=== PATIENT | female | born 1995 | race Caucasian/White ===

== ENCOUNTER 2019-01-11 19:46 | Emergency (ER) | payer OTHER ==
--- OUTSIDE RECORDS SUMMARY | 2019-01-11 19:48 | XMS REPORT ---
:1995 [facility] Address [address] [place] [address] Dr. Bashir [address] [place] [id number] Care Team Providers Name Role Phone Unavailable Unavailable Unavailable Problems This patient has no known problems. Allergies, Adverse Reactions, Alerts This patient has no known allergies or adverse reactions. Medications This patient has no known medications.
[2019-01-11 20:30] LABS: Absolute Lymphocytes (CBC) 1.7 K/uL (0.7-4.9); Basophils % 0.6 % (0-1.3); MPV 6.6 fL (7.6-11.3)
[2019-01-11 20:41] LABS: Urine Blood NEGATIVE (NEG); Urine Glucose NEGATIVE (NEG); Urine Protein TRACE (NEG); Urine Specific Gravity >1.030 (1.005-1.030); Urine pH 6.5 (5.0-7.0)
[2019-01-11 20:43] LABS: ALT/SGPT 41 U/L (12-78); AST/SGOT 20 U/L (15-37); Albumin 4.3 g/dL (3.4-5.0); Alkaline Phosphatase 130 U/L (45-117); BUN Blood Urea Nitrogen 18 mg/dL (7-18); Bicarbonate 25 mmol/L (21-32); Bilirubin Direct 0.1 mg/dL (0-0.2); Bilirubin Total 0.3 mg/dL (0.2-1.0); Glucose Level 87 mg/dL (74-106); Lipase 99 U/L (73-393); Potassium 3.6 mmol/L (3.5-5.1); Protein, Total 8.1 g/dL (6.4-8.2); Sodium Level 142 mmol/L (136-145)
--- NOTE | 2019-01-11 21:14 | EDPHYS ---
Physician Documentation [facility] Name: Milka Ayon Age: 23 yrs Sex: Female : 1995 Arrival Date: 01/11/2019 Time: 20:01 Bed 6 Private MD: ED Physician Og Senior HPI: 01/11 20:52 This 23 yrs old Female presents to ER via Ambulatory with complaints of tw4 Abdominal Pain. 20:52 The patient presents to the emergency department with diarrhea, 5 times since the onset tw4 of symptoms. Onset: The symptoms/episode began/occurred today, at 12:00. Possible causes: unknown. The symptoms are aggravated by nothing. The symptoms are alleviated by nothing. Associated signs and symptoms: Pertinent positives: abdominal pain. Severity of symptoms: At their worst the symptoms were moderate in the emergency department the symptoms are unchanged. The patient has not experienced similar symptoms in the past. 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 - Social history:: Smoking status: Patient/guardian denies using tobacco. - Ebola Screening: : No symptoms or risks identified at this time. ROS: 21:10 Constitutional: Negative for fever, chills, and weight loss, Eyes: Negative for injury, tw4 pain, redness, and discharge, Neck: Negative for injury, pain, and swelling, Cardiovascular: Negative for chest pain, palpitations, and edema, Respiratory: Negative for shortness of breath, cough, wheezing, and pleuritic chest pain, Back: Negative for injury and pain, MS/Extremity: Negative for injury and deformity, Skin: Negative for injury, rash, and discoloration, Neuro: Negative for headache, weakness, numbness, tingling, and seizure. 21:10 Abdomen/GI: Positive for diarrhea, abdominal cramps, Negative for nausea and vomiting, nausea, vomiting, and diarrhea, nausea, vomiting, anorexia, dysphagia, hematemesis, black/tarry stool, rectal pain, rectal bleeding, bowel incontinence. Exam: 21:10 Constitutional: This is a well developed, well nourished patient who is awake, alert, tw4 and in no acute distress. Head/Face: Normocephalic, atraumatic. Chest/axilla: Normal chest wall appearance and motion. Nontender with no deformity. No lesions are appreciated. Cardiovascular: Regular rate and rhythm with a normal S1 and S2. No gallops, murmurs, or rubs. Normal PMI, no JVD. No pulse deficits. Respiratory: Lungs have equal breath sounds bilaterally, clear to auscultation and percussion. No rales, rhonchi or wheezes noted. No increased work of breathing, no retractions or nasal flaring. 21:10 Back: No spinal tenderness. No costovertebral tenderness. Full range of motion. MS/ Extremity: Pulses equal, no cyanosis. Neurovascular intact. Full, normal range of motion. Neuro: Awake and alert, GCS 15, oriented to person, place, time, and situation. Cranial nerves II-XII grossly intact. Motor strength 5/5 in all extremities. Sensory grossly intact. Cerebellar exam normal. Normal gait. 21:10 Abdomen/GI: Inspection: abdomen appears normal, Bowel sounds: diminished, in all quadrants, Palpation: mild abdominal tenderness, in the umbilical area. Vital Signs: 20:04 BP 127 / 74; Pulse 86; Resp 16; Temp 97.4; Pulse Ox 100% on R/A; Weight 53.07 kg; la1 Height 4 ft. 11 in. (149.86 cm); 21:30 BP 115 / 70; Pulse 81; Resp 15; Pulse Ox 98% on R/A; rr5 22:20 BP 103 / 66; Pulse 88; Resp 17; Temp 97.5; Pulse Ox 98% ; Pain 0/10; rr5 20:04 Body Mass Index 23.63 (53.07 kg, 149.86 cm) la1 MDM: 20:05 Patient medically screened. tw4 21:10 Differential diagnosis: Nonspecific abd pain, gastritis, viral gastroenteritis, tw4 gastroenteritis. Data reviewed: vital signs, nurses notes. Data reviewed: lab test result(s), CBC, white blood cell count, hemoglobin, hematocrit, platelets, electrolytes, sodium, potassium, chloride, serum bicarbonate, BUN, creatinine, serum glucose. Data interpreted: Pulse oximetry: Interpretation: normal. Counseling: I had a detailed discussion with the patient and/or guardian regarding: the historical points, exam findings, and any diagnostic results supporting the discharge/admit diagnosis, lab results. Medication response: lomotil. Response to treatment: the patient's symptoms have resolved after treatment, the patient's pain is gone, and as a result, I will discharge patient. Special discussion: Based on the patient's Hx, exam, and Dx evaluation, there is no indication for emergent surgery or inpatient Tx. It is understood by the patient/guardian that if the Sx's persist or worsen they need to return immediately for re-evaluation. I discussed with the patient/guardian in detail that at this point there is no indication for admission to the hospital. It is understood, however, that if the symptoms persist or worsen the patient needs to return immediately for re-evaluation. 01/11 20:09 Order name: Basic Metabolic Panel; Complete Time: 20:51 01/11 20:51 Interpretation: Normal except: CL 109. 01/11 20:09 Order name: CBC with Diff; Complete Time: 20:52 [facility] 01/11 20:51 Interpretation: Normal except: RBC 5.00; MPV 6.6. 01/11 20:09 Order name: Creatinine for Radiology; Complete Time: 20:52 01/11 20:52 Interpretation: Within normal limits: CRE 0.76; GFR > 90. 01/11 20:09 Order name: Hepatic Function; Complete Time: 20:52 [facility] 01/11 20:51 Interpretation: Normal except: ALK 130; GLOB 3.8. 01/11 20:09 Order name: Lipase 01/11 20:23 Order name: Urine Dipstick--Ancillary (enter results); Complete Time: 20:52 [facility] 01/11 20:51 Interpretation: Normal except: UKET 2+. 01/11 20:09 Order name: IV Saline Lock; Complete Time: 20:21 01/11 20:09 Order name: Labs collected and sent; Complete Time: 20:21 01/11 20:09 Order name: Urine Dipstick-Ancillary (obtain specimen); Complete Time: 20:21 01/11 20:09 Order name: Urine Test (obtain specimen); Complete Time: 20:21 01/11 20:23 Order name: Urine --Ancillary (enter results); Complete Time: 20:52 em1 01/11 20:52 Interpretation: Normal except: USPGR >1.030. tw4 Administered Medications: 21:25 Drug: NS 0.9% 1000 ml Route: IV; Rate: 1 bolus; Site: right antecubital; rr5 22:20 Follow up: Response: No adverse reaction; IV Status: Completed infusion; IV Intake: rr5 1000ml 21:25 Drug: LoMOTIL 2 tabs Route: PO; rr5 22:20 Follow up: Response: No adverse reaction; Marked relief of symptoms; Pain is decreased rr5 Disposition: 01/11/19 21:12 Discharged to Home. Impression: Diarrhea, unspecified, Dehydration. - Condition is Stable. - Discharge Instructions: Food Choices to Help Relieve Diarrhea, Adult, Diarrhea, Adult. - Prescriptions for Lomotil 2.5- 0.025 mg Oral Tablet - take 2 tablet by ORAL route once daily As needed; 20 tablet. - Medication Reconciliation Form, Thank You Letter, Antibiotic Education, Prescription Opioid Use form. - Follow up: Private Physician; When: Upon discharge from the Emergency Department; Reason: If symptoms return, Recheck today's complaints, Continuance of care. - Problem is new. - Symptoms have improved. Signatures: Dispatcher [employer] EDMS Willard Murray RN RN la1 Og Senior MD MD tw4 Jose Rafael Ohara RN RN rr5 Corrections: (The following items were deleted from the chart) 22:32 21:12 01/11/2019 21:12 Discharged to Home. Impression: Diarrhea, unspecified; rr5 Dehydration. Condition is Stable. Forms are Medication Reconciliation Form, Thank You Letter, Antibiotic Education, Prescription Opioid Use. Follow up: Private Physician; When: Upon discharge from the Emergency Department; Reason: If symptoms return, Recheck today's complaints, Continuance of care. Problem is new. Symptoms have improved. tw4
--- NOTE | 2019-01-11 21:14 | ER ---
Nurse's Notes [facility] Name: Milka Ayon Age: 23 yrs Sex: Female : 1995 Arrival Date: 01/11/2019 Time: 20:01 Bed 6 Private MD: Diagnosis: Diarrhea, unspecified;Dehydration Presentation: 01/11 20:03 Presenting complaint: Patient states: Abd pain, diarrhea, and neck pain that started la1 today. Transition of care: patient was not received from another setting of care. Onset of symptoms was January 11, 2019. Risk Assessment: Do you want to hurt yourself or someone else? Patient reports no desire to harm self or others. Initial Sepsis Screen: Does the patient meet any 2 criteria? No. Patient's initial sepsis screen is negative. Does the patient have a suspected source of infection? No. Patient's initial sepsis screen is negative. Care prior to arrival: None. 20:03 Method Of Arrival: Ambulatory la1 20:03 Acuity: JULIETH 3 la1 BLACK BELT: 21:00 [facility] 11/2017 rr5 Historical: - Allergies: 20:04 No Known Allergies; la1 - PMHx: 20:04 None; la1 - Immunization history:: Adult Immunizations up to date. - Social history:: Smoking status: Patient/guardian denies using tobacco. - Ebola Screening: : No symptoms or risks identified at this time. Screenin:06 Abuse screen: Denies threats or abuse. Denies injuries from another. Nutritional ak1 screening: No deficits noted. Tuberculosis screening: No symptoms or risk factors identified. Fall Risk None identified. Assessment: 20:08 General: Appears in no apparent distress. comfortable, Behavior is calm, cooperative. ak1 Pain: Complains of pain in abdomen. Neuro: No deficits noted. Cardiovascular: No deficits noted. Respiratory: No deficits noted. GI: Abdomen is round non-distended, Reports diarrhea, Patient currently denies vomiting. : No signs and/or symptoms were reported regarding the genitourinary system. EENT: No signs and/or symptoms were reported regarding the EENT system. Derm: No signs and/or symptoms reported regarding the dermatologic system. Musculoskeletal: No signs and/or symptoms reported regarding the musculoskeletal system. 20:08 GI: Bowel sounds present X 4 quads. Abd is soft and non tender X 4 quads. rr5 21:15 Reassessment: Patient appears in no apparent distress at this time. Patient and/or rr5 family updated on plan of care and expected duration. Pain level reassessed. Patient is alert, oriented x 3, equal unlabored respirations, skin warm/dry/pink. after fluid infusion for discharge. 22:20 Reassessment: Patient appears in no apparent distress at this time. Patient is alert, rr5 oriented x 3, equal unlabored respirations, skin warm/dry/pink. discharge instruction given and explained without complaints made. Patient denies pain at this time. Patient states feeling better. Patient states symptoms have improved. Vital Signs: 20:04 BP 127 / 74; Pulse 86; Resp 16; Temp 97.4; Pulse Ox 100% on R/A; Weight 53.07 kg; la1 Height 4 ft. 11 in. (149.86 cm); 21:30 BP 115 / 70; Pulse 81; Resp 15; Pulse Ox 98% on R/A; rr5 22:20 BP 103 / 66; Pulse 88; Resp 17; Temp 97.5; Pulse Ox 98% ; Pain 0/10; rr5 20:04 Body Mass Index 23.63 (53.07 kg, 149.86 cm) la1 ED Course: 20:01 Patient arrived in ED. ds1 20:04 Triage completed. la1 20:04 Arm band placed on left wrist. la1 20:05 Og Senior MD is Attending Physician. tw4 20:08 Arianne Buchanan, RN is Primary Nurse. ak1 20:09 Patient has correct armband on for positive identification. Bed in low position. Call ak1 light in reach. Side rails up X 1. Adult w/ patient. 20:20 Inserted saline lock: 22 gauge in right antecubital area, using aseptic technique. rr5 Blood collected. 22:20 No provider procedures requiring assistance completed. IV discontinued, intact, rr5 bleeding controlled, No redness/swelling at site. Pressure dressing applied. Administered Medications: 21:25 Drug: NS 0.9% 1000 ml Route: IV; Rate: 1 bolus; Site: right antecubital; rr5 22:20 Follow up: Response: No adverse reaction; IV Status: Completed infusion; IV Intake: rr5 1000ml 21:25 Drug: LoMOTIL 2 tabs Route: PO; rr5 22:20 Follow up: Response: No adverse reaction; Marked relief of symptoms; Pain is decreased rr5 Intake: 22:20 IV: 1000ml; Total: 1000ml. rr5 Outcome: 21:12 Discharge ordered by . [email or web address] 22:20 Discharged to home ambulatory, with family. rr5 22:20 Condition: stable 22:20 Discharge instructions given to patient, Instructed on discharge instructions, follow up and referral plans. medication usage, Demonstrated understanding of instructions, follow-up care, medications, Prescriptions given X 1. 22:32 Patient left the ED. rr5 Signatures: Mahnaz Yang ds1 Willard Murray, RN RN la1 Arianne Buchanan RN RN ak1 Og Senior MD MD tw4 Jose Rafael Ohara RN RN rr5
[2019-01-11] MEDS ORDERED: DIPHENOX/ATROP SULF 1 TAB PO ONE (21:18)
[2019-01-11] MEDS ORDERED: NA CHLORIDE 0.9% 1,000 ML ONE (21:19)
[2019-01-11 22:59] VITALS: O2SAT 98
[2019-01-11 23:02] VITALS: BP 103/66; TEMP 97.5
== END 2019-01-11 22:32 | disposition home or self-care (01) ==
LOC: ER 19:46
DX: E86.0 Dehydration (principal)
CPT/HCPCS: 85025; 80048; 36415; 81025; 80076; 81003; 83690; J7030; 96360; 99284

== ENCOUNTER 2019-10-05 13:43 | Emergency (ER) | payer OTHER ==
[2019-10-05] MEDS ORDERED: LIDOCAINE 1% MPF 5 ML VIAL ONE (14:33)
[2019-10-05] MEDS ORDERED: CEFTRIAXONE 250 MG/VIAL ONE (14:34)
[2019-10-05] MEDS ORDERED: AZITHROMYCIN 250 MG TAB ONE (14:34)
[2019-10-05] MEDS ORDERED: metroNIDAZOLE 500 MG TABLET ONE (14:34)
--- NOTE | 2019-10-05 14:47 | EDPHYS ---
Physician Documentation [facility] Name: Milka Ayon Age: 24 yrs Sex: Female : 1995 Arrival Date: 10/05/2019 Time: 13:46 Bed 14 Private MD: ED Physician Saleem Fried Historical: - Allergies: 10/04 13:54 No Known Allergies; iw - Home Meds: 13:54 None [Active]; iw - PMHx: 13:54 None; iw - PSHx: 13:54 cleft lip repair; ; iw - Immunization history:: Adult Immunizations unknown. - Social history:: Smoking status: Patient denies any tobacco usage or history of. Vital Signs: 13:51 BP 128 / 74; Pulse 62; Resp 16; Temp 98.7; Pulse Ox 100% on R/A; Weight 56.7 kg; Height iw 4 ft. 10 in. (147.32 cm); 13:51 Body Mass Index 26.12 (56.70 kg, 147.32 cm) iw MDM: 14:11 Patient medically screened. [facility] 14:46 Data reviewed: vital signs, nurses notes. Counseling: I had a detailed discussion with sofy the patient and/or guardian regarding: the historical points, exam findings, and any diagnostic results supporting the discharge/admit diagnosis, the need for outpatient follow up, to return to the emergency department if symptoms worsen or persist or if there are any questions or concerns that arise at home. ED course: Patient is asymptomatic. Patient is advised to follow up with medical management trainer for further evaluation and otherwise given strict return precautions. Patient understood and agrees with the plan of care. . 10/04 14:18 Order name: Urine Culture [facility] 10/04 14:24 Order name: Urine Dipstick--Ancillary (enter results) eb 10/04 14:24 Order name: Urine --Ancillary (enter results) Administered Medications: 14:30 Drug: Rocephin (cefTRIAXone) 250 mg Route: IM; Site: right ventrogluteal; ah 15:09 Follow up: Response: No adverse reaction 14:35 Drug: AZITHromycin 1 grams Route: PO; ah 15:09 Follow up: Response: No adverse reaction 14:35 Drug: Flagyl 2 grams Route: PO; 15:09 Follow up: Response: No adverse reaction Disposition: 15:32 Co-signature as Attending Physician, Saleem Fried MD. rn Disposition: 10/05/19 14:47 Discharged to Home. Impression: Person with feared health complaint in whom no diagnosis is made. - Condition is Stable. - Discharge Instructions: Sexually Transmitted Disease. - Medication Reconciliation Form, Thank You Letter, Antibiotic Education, Prescription Opioid Use form. - Follow up: Private Physician; When: 2 - 3 days; Reason: Recheck today's complaints, Continuance of care, Re-evaluation by your physician. Addendum: 10/13/2019 16:19 Addendum: HPI - Patient complains of concern for STD exposure. Admits to unprotected j mm intercourse with partner whom the patient stated had had intercourse with another partner earlier that day. Denies vaginal discharge, pelvic pain, dysuria. ROS - Negative for all systems. PE - GEN NAD, HEENT Atraumatic, Neck Supple, Resp Non labored, Cardio RRR, Abd Soft, Psych Behavior calm, Neuro A x O x 3. Diagnosis - Feared complaint in which no diagnosis is made. Signatures: Dispatcher [employer] EDMS Richar Mendoza PA PA jmm Williams, Irene, RN RAMIRO Saleem Fried MD MD rn Harris, Amy, RN RN Corrections: (The following items were deleted from the chart) 10/04 15:09 14:47 10/05/2019 14:47 Discharged to Home. Impression: Person with feared health ah complaint in whom no diagnosis is made. Condition is Stable. Forms are Medication Reconciliation Form, Thank You Letter, Antibiotic Education, Prescription Opioid Use. Follow up: Private Physician; When: 2 - 3 days; Reason: Recheck today's complaints, Continuance of care, Re-evaluation by your physician. sofy
--- NOTE | 2019-10-05 14:47 | ER ---
Nurse's Notes [facility] Name: Milka Ayon Age: 24 yrs Sex: Female : 1995 Arrival Date: 10/05/2019 Time: 13:46 Bed 14 Private MD: Diagnosis: Person with feared health complaint in whom no diagnosis is made Presentation: 10/04 13:51 Chief complaint: Patient states: her partner cheated on her with a friend, was told she iw had an STD, does not know which one, pt does not have symptoms, denies discharge, pain/burning. Initial Sepsis Screen: Does the patient meet any 2 criteria? No. Patient's initial sepsis screen is negative. Does the patient have a suspected source of infection? No. Patient's initial sepsis screen is negative. Risk Assessment: Do you want to hurt yourself or someone else? Patient reports no desire to harm self or others. Onset of symptoms was October 05, 2019. 13:51 Method Of Arrival: Ambulatory iw 13:51 Acuity: JULIETH 4 iw 15:07 Coronavirus screen: Proceed with normal triage. Ebola Screen: No symptoms or risks ah identified at this time. Historical: - Allergies: 13:54 No Known Allergies; iw - Home Meds: 13:54 None [Active]; iw - PMHx: 13:54 None; iw - PSHx: 13:54 cleft lip repair; ; iw - Immunization history:: Adult Immunizations unknown. - Social history:: Smoking status: Patient denies any tobacco usage or history of. Screenin:07 Abuse screen: Denies threats or abuse. Nutritional screening: No deficits noted. Tuberculosis screening: No symptoms or risk factors identified. Fall Risk None identified. Assessment: 14:00 General: Appears in no apparent distress. Behavior is calm, cooperative. Pain: Denies pain. Neuro: Level of Consciousness is awake, alert, Oriented to person, place, time, situation. Cardiovascular: Capillary refill < 3 seconds Patient's skin is warm and dry. Respiratory: Airway is patent Respiratory effort is even, unlabored. GI: Patient currently denies. GI:. : Denies burning with urination, discharge. Derm: Skin is intact, is healthy with good turgor. 14:45 Reassessment: Denies any adverse reactions to medications. ah Vital Signs: 13:51 BP 128 / 74; Pulse 62; Resp 16; Temp 98.7; Pulse Ox 100% on R/A; Weight 56.7 kg; Height iw 4 ft. 10 in. (147.32 cm); 13:51 Body Mass Index 26.12 (56.70 kg, 147.32 cm) ED Course: 13:46 Patient arrived in ED. bp1 13:53 Triage completed. 13:56 Richar Mendoza PA is PHCP. [facility] 13:56 Saleem Fried MD is Attending Physician. [facility] 13:56 Courtney Levy, RN is Primary Nurse. 14:45 Patient has correct armband on for positive identification. Bed in low position. Call light in reach. Side rails up X 1. 14:45 No provider procedures requiring assistance completed. Patient did not have IV access ah during this emergency room visit. 15:07 Arm band placed on right wrist. Administered Medications: 14:30 Drug: Rocephin (cefTRIAXone) 250 mg Route: IM; Site: right ventrogluteal; 15:09 Follow up: Response: No adverse reaction 14:35 Drug: AZITHromycin 1 grams Route: PO; 15:09 Follow up: Response: No adverse reaction 14:35 Drug: Flagyl 2 grams Route: PO; 15:09 Follow up: Response: No adverse reaction Outcome: 14:47 Discharge ordered by . [facility] 14:50 Discharged to home ambulatory. 14:50 Condition: good 14:50 Discharge instructions given to patient, Instructed on discharge instructions, follow up and referral plans. Demonstrated understanding of instructions, follow-up care. 15:09 Patient left the ED. Signatures: Richar Mendoza PA PA jmm Williams, Irene, RN RN Courtney Levy, RN RN Glenis Garcia bp1
[2019-10-05 16:13] LABS: Urine Blood TRACE (NEG); Urine Glucose NEGATIVE (NEG); Urine Protein NEGATIVE (NEG); Urine Specific Gravity 1.025 (1.005-1.030)
--- OUTSIDE RECORDS SUMMARY | 2019-10-05 18:47 | XMS REPORT | Summary of Care ---
:1995 Author Organization [facility] Address [address] [place] [address] Care Team Providers Name Role Phone Marika Bentley Primary Care Provider Reason for Visit Reason Comments CONTROL INJECTION depo Encounter Details Date Type Department Care Team Description 08/03/2019 Telemedicine Visit [facility] Radha Cartwright, Abdom inal pain, generalized (Primary Dx); Women's PA-C Surveillance for Depo-Provera contracept [address], [address] [place] [address] [phone] Allergies No Known Allergiesdocumented as of this encounter (statuses as of 08/03/2019) Medications Hospital, Clinic, or Other Ordered Dose Route Frequency Start Date End Date Status Facility Administered Medication medroxyPROGESTERone 150 mg IM ONCE 08/03/2019 0 Ended (DEPO-PROVERA) injection 150 mg documented as of this encounter (statuses as of 08/03/2019) Active Problems Problem Noted Date Depo-Provera contraceptive status 02/11/2018 documented as of this encounter (statuses as of 08/03/2019) Resolved Problems Problem Noted Date Resolved Date S/P primary low transverse 01/15/201805/2017 Single liveborn, born in hospital, delivered by 01/21/2018 delivery 38 weeks gestation of 01/14/2018 01/22/20 18 heart rate/rhythm abnormality affecting management of 01/14/2018 01/21/2018 mother Anemia of mother in , antepartum 12/20/2017 08/03/2019 32 weeks gestation of 12/08/2017 08/03/19 20 Back pain affecting in third trimester 12/08/2017 08/03/2019 Supervision of high-risk with history of 07/30/2017 08/03/2019 in second trimester Abnormal glucose affecting 07/26/2017 High-risk , third trimester 07/23/2017 documented as of this encounter (statuses as of 08/03/2019) Immunizations Name Administration Dates Next Due MMR 01/15/2018 Tdap 11/15/2017 documented as of this encounter Social History Tobacco Use Types Packs/Day Years Used Date Never Smoker Smokeless Tobacco: Never Used Alcohol Use Drinks/Week oz/Week Comments No Sex Assigned at Date Recorded Not on file Job Start Date Occupation Industry Not on file Not on file Not on file Travel History Travel Start Travel End No recent travel history available. documented as of this encounter Last Filed Vital Signs Vital Sign Reading Time Taken Comments Blood Pressure 99/68 08/03/2019 3:13 PM CDT Pulse 84 08/03/2019 3:13 PM CDT Temperature 36.9 C (98.4 F) 08/03/2019 3:13 PM CDT Respiratory Rate 18 08/03/2019 3:13 PM CDT Oxygen Saturation - - Inhaled Oxygen Concentration - - Weight 53.1 kg (117 lb) 08/03/2019 3:13 PM CDT Height 149.9 cm (4' 11") 08/03/2019 3:13 PM CDT Body Mass Index 23.63 08/03/2019 3:13 PM CDT documented in this encounter Progress Notes Tye Romero MA - 08/03/2019 3:00 PM CDT23 year old female has been identified by and name. Verbal consent has been obtained by patientto have an injection of Depo Provera, as ordered by the provider. Date of last Depo Provera injection: 02/10/2019, Patient reports last intercourse was 3 weeks ago inoffice UPT- negative today Last Pap Smear: 07/30/2017 Encounter Diagnosis: Z30.42 The site was cleaned with an alcohol swab and given intramuscularly (IM) in the left deltoid. A band aid dressing was then applied to the injection site. The patient tolerated the procedure well , norash, swelling or reaction noted. TYE ROMERO MA 08/03/2019 4:06 PM TRadha Cartwright PA-C - 08/03/2019 3:00 PM CDT TELEHEALTH NOTE -conducted OV via telehealth due to covid-19 crisis- Verbal consent obtained from Patient: Milka Chappell for telehealth services provided below. Communication with patient was conducted via Telephone due to patient unable to obtain video call option. Location of Patient: Home Location of Provider: Office Date of Service: 08/03/2019 Chief Complaint: FOLLOW-UP on depo shot HPI: Milka Chappell is a 23 year old female with Past Medical History: Diagnosis Date Abnormal glucose affecting 07/26/2017 Anemia of mother in , antepartum 12/20/2017 Cleft lip Patient reports her last depo was in 02/2019 but due to losing her insurance she was not able to come back in for her next shot. Patient reports has been amenorrheic. Patient is desiring to continue with depo. Patient also reports her pelvic and back has been hurting like she is going to start her menses. MEDICATIONS: No outpatient medications have been marked as taking for the 08/03/19 encounter (Telemedicine Visit) with Radha Cartwright PA-C. BRIA She has no complaints and reports is doing well. Patient denies any abnormal pain, discharge, dysuria, hematuria, abnormal bleeding. Denies fever, chills, body aches, sob, chest pain, dyspnea. ROS otherwise negative. +back pain +pelvic pain TELEHEALTH EXAM Alert. Happy. Stable. Answering and asking questions appropriately. ASSESSMENT/ PLAN Milka Chappell is a 23 year old female with PMH as above presenting with: 1. Abdominal pain, generalized 2. Surveillance for Depo-Provera contraception rtc of depo shot with nurse visit. Advised RN to get a UPT first. Pending UA. If sx do not improve or worsen, patient to rtc or call office. Plan of care, desired health behaviors, goals, Ddx, and any prescribed medications were discussed with the patient. I spent 15 minute(s) conducting this Telehealth encounter with the patient. Education resources and self-management tools were provided is the AVS which is accessible throughMyChart. Patient/guardian/family verbalized understanding and agrees to the plan of care. Barriersto care: None. Ability to manage care: Good. If applicable, the [facility] database was accessed to review any controlled substance prescription claims data. If the patient is taking prescribed medications, the [employer] prescription claims data in [employer] was reviewed to assess patient compliance with the medication treatment plan. COVID-19 precautions given including frequent handwashing, social distancing, cleaning and disinfecting, indications for testing, etc. After visit summary (AVS ) documentation will be available through [employer] for this encounter. Radha Cartwright PA-C 08/03/2019 3:11 PM documented in this encounter Plan of Treatment Date Type Specialty Care Team Description 11/02/2019 Nurse Visit Obstetrics & Gynecology Nurse, [facility] Women' s Health 02/11/2020 Office Visit Obstetrics & Gynecology Radha Cartwright PA-C [address] [place] [address] [phone] Name Type Priority Associated Diagnoses Order S chedule URINE CULTURE LAB Routine Abdominal pain, generalized Expected: 08/03/2019, Surveillance for Depo-Medical Radiation Therapist a Expires: 11/02/2019 contraception Health Maintenance Due Date Last Done Comments MENINGOCOCCAL B VACCINES (1 of 08/19/2005 2 - Risk Bexsero 2-dose series) HPV VACCINES (1 - Female 08/19/2006 2-dose series) CHLAMYDIA SCREENING 12/07/2018 12/07/2017, 07/23/2017 INFLUENZA VACCINE (#1) 2018 PAP SMEAR 07/30/2020 07/30/2017 DTaP,Tdap,and Td Vaccines (2 - 11/16/2027 11/15/2017 Td) PNEUMOCOCCAL 0-64 YEARS Aged Out No longe r eligible based COMBINED SERIES on patient's age to complete this to pic documented as of this encounter Procedures Procedure Name Priority Date/Time Associated Diagnosis Comme nts POCT URINALYSIS W/O Routine 08/03/2019 Abdominal pain, Resul ts for this SPECIFIC GRAVITY generalized procedure are in the Surveillance for results sec tion. Depo-Provera contraception POCT TEST Routine 08/03/2019 Abdominal pain, Resul ts for this generalized procedure are in the Surveillance for results sec tion. Depo-Provera contraception documented in this encounter Results POCT URINALYSIS W/O SPECIFIC GRAVITY (08/03/2019) Pathologist Sig nature POCT PH U 6 5 - 8 mg/dl POCT U LEUK EST Negative Negative - Negative POCT U NIT Negative Negative - Negative POCT U PROT Negative Negative - Negative POCT U GLU Negative Negative - Negative POCT U KETONE Negative Negative - Negative POCT U BLD Trace Negative - Negative Specimen Urine - URINE, CLEAN CATCH POCT TEST (08/03/2019) Pathologist Sig nature POCT PREG Negative On board controls acceptable Yes with C Line POCT PREG LOT # POCT PREG TEST DATE Specimen Urine - URINE, CLEAN CATCH documented in this encounter Visit Diagnoses Diagnosis Abdominal pain, generalized - Primary Surveillance for Depo-Provera contracept ion Surveillance of other previously prescri bed contraceptive method documented in this encounter Administered Medications Medication Order MAR Action Action Date Dose Rate Site medroxyPROGESTERone Given 08/03/2019 4:02 150 mg Left Deltoid-IM (DEPO-PROVERA) injection 150 PM CDT mg 150 mg, Intramuscular, ONCE, 1 dose, 08/03/19 at 1630, Routine documented in this encounter Insurance Payer Benefit Plan / Subscriber ID Effective Phone Address [facility] xxxxxxxxx 2017-Prese [address] Medic aid HEALTH CHOICE - HEALTH CHOICE nt [id number] 1 MANAGED MEDICAID [place], [place] MEDICAID [phone] documented as of this encounter
--- OUTSIDE RECORDS SUMMARY | 2019-10-05 18:47 | XMS REPORT | Continuity of Care Document ---
:1995 Author Organization [facility] t Address [address] [place] [address] Care Team Providers Name Role Phone Gabbie GARCIA Attending Clinician Problems This patient has no known problems. Allergies, Adverse Reactions, Alerts This patient has no known allergies or adverse reactions. Medications This patient has no known medications. Procedures This patient has no known procedures. Encounters Start End Encounter Admission Attending Care Care Encounter Source Date/Time Date/Time Type Type Clinicians Facility Department ID 2019-10-05 2019-10-05 Telephone [facility] [id number] 00:00:00 00:00:00 Radha Villanueva [id number] [place] [id number] [facility] [phone] nal 134 Building 2019-08-03 2019-08-03 Telemedici [facility] [id number] 08:19:26 16:18:00 ne Visit Radha Villanueva [id number] [place] [id number] [facility] [phone] nal 134 [facility] Results This patient has no known results.
--- OUTSIDE RECORDS SUMMARY | 2019-10-05 18:47 | XMS REPORT | Summary of Care ---
:1995 Author Organization [facility] Address [address] [place] [address] Care Team Providers Name Role Phone Marika Bentley Primary Care Provider Reason for Visit Reason Comments CONTROL INJECTION depo Encounter Details Date Type Department Care Team Description 08/03/2019 Telemedicine Visit [facility] Radha Cartwright, Abdom inal pain, generalized (Primary Dx); Women's PA-C Surveillance for Depo-Provera contracept [address], [address] [place] [address] [phone] Allergies No Known Allergiesdocumented as of this encounter (statuses as of 08/03/2019) Medications No known medicationsdocumented as of this encounter (statuses as of [...] CDT documented in this encounter Progress Notes Radha Cartwright PA-C - 08/03/2019 3:00 PM CDT [...] encounter (Telemedicine Visit) with Radha Cartwright PA-C. ROS She has no complaints and reports is doing well. Patient denies any abnormal pain, discharge, dysuria, hematuria, abnormal bleeding. Denies fever, chills, body aches, sob, chest pain, dyspnea. ROS otherwise negative. +back pain +pelvic pain TELEHEALTH EXAM Alert. Happy. Stable. Answering and asking questions appropriately. ASSESSMENT/ PLAN July Ting Chappell is a 23 year old female [...] to manage care: Good. If applicable, the [place] [employer] database was accessed to review any controlled substance prescription claims data. If the patient is taking prescribed medications, the [employer] prescription claims data in [employer] was reviewed to assess patient compliance with the medication treatment plan. COVID-19 precautions given including frequent handwashing, social distancing, cleaning and disinfecting, indications for testing, etc. After visit summary (AVS ) documentation will be available through [employer] for this encounter. Radha Cartwright PA-C 08/03/2019 3:11 PM documented in this encounter Plan of Treatment Date Type Specialty Care Team Description 02/11/2020 Office Visit Obstetrics & Gynecology Radha Cartwright PA-C [address] [place] [address] [phone] Health Maintenance Due Date Last Done Comments [...] on patient's age to complete this to [facility] documented as of this encounter Results Not on filedocumented in this encounter Visit Diagnoses Diagnosis Abdominal pain, generalized - Primary Surveillance for Depo-Provera contracept ion Surveillance of other previously prescri bed contraceptive method documented in this encounter Insurance Payer Benefit Plan / Subscriber ID Effective Phone Address [employer] [facility] xxxxxxxxx 2017-Prese [address] Medic aid HEALTH CHOICE - HEALTH CHOICE nt [id number] 1 MANAGED MEDICAID [place], [place] MED[place]ID [phone] documented as of this encounter
--- OUTSIDE RECORDS SUMMARY | 2019-10-05 18:47 | XMS REPORT | Summary of Care ---
:1995 Author Organization [facility] Address [address] [place] [address] Care Team Providers Name Role Phone Sheree Marika Primary Care Provider Reason for Visit Reason Comments CONTROL Encounter Details Date Type Department Care Team Description 08/03/2019 Telemedicine Visit [facility] Radha Cartwright, Abdom inal pain, generalized (Primary Dx); Women's PA-C Surveillance for Depo-Provera [facility] [address], [address] [place] [address] [phone] Allergies No Known Allergiesdocumented as of this [...] of this encounter Last Filed Vital Signs Not on filedocumented in this encounter Progress Notes Radha Cartwright [...] to manage care: Good. If applicable, the [place] [employer] database was accessed to review any controlled substance prescription claims data. If the patient is taking prescribed medications, the [facility] prescription claims data in [employer] was reviewed to assess patient compliance with the medication treatment plan. COVID-19 precautions given including frequent handwashing, social distancing, cleaning and disinfecting, indications for testing, etc. After visit summary (AVS ) documentation will be available through [employer] for this encounter. Rahda Cartwright PA-C 08/03/2019 3:11 PM documented in this encounter Plan of Treatment Date Type Specialty Care Team Description 02/11/2020 Office Visit Obstetrics & Gynecology Radha Cartwright PA-C [address] [place] [address] [phone] Health Maintenance Due Date Last Done [...] on patient's age to complete this to [facility] documented as of this encounter Results Not on filedocumented in this encounter Visit Diagnoses Diagnosis Abdominal pain, generalized - Primary Surveillance for Depo-Provera contracept ion Surveillance of other previously prescri bed contraceptive method documented in this encounter Insurance Payer Benefit Plan / Subscriber ID Effective Phone Address [employer] Group Dates [facility] xxxxxxxxx 2017-Prese [address]OX Medic aid HEALTH CHOICE - HEALTH CHOICE nt [id number] 1 MANAGED MEDICAID [place], [place] MEDICAID [address] documented as of this encounter
--- OUTSIDE RECORDS SUMMARY | 2019-10-05 18:47 | XMS REPORT | Summary of Care ---
:1995 Author Organization [facility] Address [address] [place] [address] Care Team Providers Name Role Phone Marika Bentley Primary Care Provider Reason for Visit Reason Comments CONTROL INJECTION depo Encounter Details Date Type Department Care Team Description 08/03/2019 Telemedicine Visit [facility] Radha Cartwright, Abdom inal pain, generalized (Primary Dx); Women's PA-C Surveillance for Depo-Provera contracept [address], [address] [place] [address] [phone] Allergies No Known Allergiesdocumented as of this [...] Complaint: FOLLOW-UP on depo shot HPI: Milka Chapepll is a 23 year old female with [...] to manage care: Good. If applicable, the [employer] database was accessed to review any controlled substance prescription claims data. If the patient is taking prescribed medications, the [employer] prescription claims data in [employer] was reviewed to assess patient compliance with the medication treatment plan. COVID-19 precautions given including frequent handwashing, social distancing, cleaning and disinfecting, indications for testing, etc. After visit summary (AVS ) documentation will be available through [employer] for this encounter. Radha Cartwright PA-C 08/03/2019 3:11 PM documented in this encounter Plan of Treatment Date Type Specialty Care Team Description 02/11/2020 Office Visit Obstetrics & Gynecology Radha Cartwright PA-C [address] [place] [address] [phone] Health Maintenance Due Date Last Done [...] on patient's age to complete this to [facility] documented as of this encounter Results Not on filedocumented in this encounter Visit Diagnoses Diagnosis Abdominal pain, generalized - Primary Surveillance for Depo-Provera contracept ion Surveillance of other previously prescri bed contraceptive method documented in this encounter Insurance Payer Benefit Plan / Subscriber ID Effective Phone Address T [employer] Dates [facility] xxxxxxxxx 2017-Prese [address]OX Medic aid HEALTH CHOICE - HEALTH CHOICE nt [id number] 1 MANAGED MEDICAID [place], [place] [phone] documented as of this encounter
--- OUTSIDE RECORDS SUMMARY | 2019-10-05 18:47 | XMS REPORT | Summary of Care ---
:1995 Author Organization [facility] Address [address] [place] [address] Care Team Providers Name Role Phone Marika Bentley Primary Care Provider Reason for Visit Reason Comments CONTROL INJECTION depo Encounter Details Date Type Department Care Team Description 08/03/2019 Telemedicine Visit [facility] Radha Cartwright, Abdom inal pain, generalized (Primary Dx); Women's PA-C Surveillance for Depo-Provera contracept [address], [address] [place] [address] [phone] Allergies No Known Allergiesdocumented as of this [...] noted. TYE ROMERO MA 08/03/2019 4:06 PM Radha Andrews PA-C - 08/03/2019 3:00 PM CDT TELEHEALTH [...] RN to get a UPT first. Pending UA --Addendum UA showed blood, Pending UC. UPT was neg. Depo given in office today.-- If sx do not improve or worsen, [...] to manage care: Good. If applicable, the [place] [employer] database was accessed to review any controlled substance prescription claims data. If the patient is taking prescribed medications, the [employer] prescription claims data in [employer] was reviewed to assess patient compliance with the medication treatment plan. COVID-19 precautions given including frequent handwashing, social distancing, cleaning and disinfecting, indications for testing, etc. After visit summary (AVS ) documentation will be available through [employer] for this encounter. Radha Cartwright PA-C 08/03/2019 3:11 PM documented in this encounter Plan of Treatment Date Type Specialty Care Team Description 11/02/2019 Nurse Visit Obstetrics & Gynecology Nurse, [facility] Women' s Health 02/11/2020 Office Visit Obstetrics & Gynecology Radha Cartwright PA-C [address] [place] [address] [phone] Name Type Priority Associated Diagnoses Order S chedule URINE CULTURE LAB Routine Abdominal pain, generalized Expected: 08/03/2019, Surveillance for Depo-Expeller Operator a Expires: 11/02/2019 contraception Health Maintenance Due [...] / Subscriber ID Effective Phone Address [facility] xxxxxxxxx 2017-Prese [address]OX Medic aid HEALTH CHOICE - HEALTH CHOICE nt [id number] 1 MANAGED MEDICAID [place], [place] MED[place]ID [phone] Guarantor Name Account Type Relation to Date of Phone Billing Address Patient Personal/Famil Self 1995 [phone] [address] [employer] [address] (Home) [place] [address] documented as of this encounter
== END 2019-10-05 15:09 | disposition home or self-care (01) ==
LOC: ER 13:43
DX: Z71.1 Person with feared health complaint in whom no diagnosis is made (principal)
CPT/HCPCS: 87088; 87086; 81025; 81003; 96372; 99283; J0696

== ENCOUNTER 2019-11-17 02:29 | Emergency (ER) | payer OTHER ==
--- OUTSIDE RECORDS SUMMARY | 2019-11-17 02:32 | XMS REPORT | Summary of Care ---
:1995 Author Organization [facility] Address [address] [place] [address] Care Team Providers Name Role Phone Marika Bentley Primary Care Provider Reason for Visit Reason Comments Appointment Encounter Details Date Type Department Care Team Description 10/05/2019 Telephone [facility] Women's Ofe Cartwright PA-C Appointment [facility]- [address] [address] [address] [place] [address] [place] [address] [phone] Allergies No Known Allergiesdocumented as of this encounter (statuses as of 10/05/2019) Medications No known medicationsdocumented as of this encounter (statuses as of 10/05/2019) Active Problems Problem Noted Date Depo-Provera contraceptive status 02/11/2018 documented as of this encounter (statuses as of 10/05/2019) Resolved Problems Problem Noted Date Resolved Date [...] as of this encounter (statuses as of 10/05/2019) Immunizations Name Administration Dates Next Due MMR [...] Signs Not on filedocumented in this encounter Plan of Treatment Date Type Specialty Care Team Description 11/02/2019 Nurse Visit Obstetrics & Gynecology Nurse, [facility] Women' s Health 02/11/2020 Office Visit Obstetrics & Gynecology Radha Cartwright PA-C [address] [place] [address] [phone] Health Maintenance Due Date Last Done Comments HPV VACCINES (1 - Female 08/19/2006 2-dose series) Depression Screening 2007 CHLAMYDIA SCREENING 12/07/2018 12/07/2017, 07/23/2017 INFLUENZA VACCINE (Season 12/22/2019 Ended) PAP SMEAR 07/30/2020 07/30/2017 DTaP,Tdap,and Td Vaccines (2 11/16/2027 11/15/2017 - Td) PNEUMOCOCCAL 0-64 YEARS Aged Out No longe r eligible based COMBINED SERIES on patient's age to complete this to [facility] documented as of this encounter Results Not on filedocumented in this encounter Insurance Payer Benefit Plan / Subscriber ID Effective Phone Address T [employer] Group Dates [facility] xxxxxxxxx 2017-Prese [address]O. BOX Medic aid HEALTH CHOICE - HEALTH CHOICE nt [id number] 1 MANAGED MEDICAID [place], [place] MED[place]ID [phone] documented as of this encounter
--- OUTSIDE RECORDS SUMMARY | 2019-11-17 02:32 | XMS REPORT | Continuity of Care Document ---
:1995 Author Organization [facility] t Address [address] [place] [address] Care Team Providers Name Role Phone Nurse, [facility] Attending Clinician Unavailable Doctor Unassigned, Name Attending Clinician Unavailable Gabbie GARCIA Attending Clinician Problems This patient has no known problems. Allergies, Adverse Reactions, Alerts This patient has no known allergies or adverse reactions. Medications This patient has no known medications. Procedures This patient has no known procedures. Encounters Start End Encounter Admission Attending Care Care Encounter Source Date/Time Date/Time Type Type Clinicians Facility Department ID 2019-11-10 2019-11-10 Nurse Nurse, [facility] [id number] 14:34:47 14:51:13 Visit Pierre Villanueva [id number] [facility] [id number] [facility] [phone] [address] 2019-11-10 2019-11-10 Orders Doctor SAVANNAH [id number] 00:00:00 00:00:00 Only Unassigned, JOSEPH [id number] [place] [facility] [id number] 2019-10-05 2019-10-05 Telephone Gabbie ALELSY [id number] 00:00:00 00:00:00 Radha Villanueva [id number] [place] [id number] [facility] [id number] [address] 2019-08-03 2019-08-03 [facility] Gabbie [facility] [id number] 08:19:26 16:18:00 ne Visit Radha Kay [id number] [place] [id number] [facility] [phone] [facility] [address] Building Results This patient has no known results.
--- OUTSIDE RECORDS SUMMARY | 2019-11-17 02:32 | XMS REPORT | Summary of Care ---
:1995 Author Organization [facility] Address [address] [place] [address] Care Team Providers Name Role Phone Marika Bentley Primary Care Provider Encounter Details Date Type Department Care Team Description 11/10/2019 Orders Only [facility] Doctor Unassigned, No [address] [facility] [place] [address] [address] [place] [address] Allergies No Known Allergiesdocumented as of this encounter (statuses as of 11/10/2019) Medications No known medicationsdocumented as of this encounter (statuses as of 11/10/2019) Active Problems Problem Noted Date Depo-Provera contraceptive status 02/11/2018 documented as of this encounter (statuses as of 11/10/2019) Resolved Problems Problem Noted Date Resolved Date [...] as of this encounter (statuses as of 11/10/2019) Immunizations Name Administration Dates Next Due MMR 01/15/2018 TDAP 11/15/2017 documented as of this encounter Social History Tobacco Use Types Packs/Day Years Used Date Never Smoker Smokeless Tobacco: Never Used Alcohol Use Drinks/Week oz/Week Comments No Sex Assigned at Date Recorded Not on file Job Start Date Occupation Industry Not on file Not on file Not on file Travel History Travel Start Travel End No recent travel history available. COVID-19 Exposure Response Date Recorded In the last month, have you been in contact with No / Unsure 11/10/2019 2:33 PM CDT someone who was confirmed or suspected to have Coronavirus / COVID-19? documented as of this encounter Last Filed Vital Signs Not on filedocumented in this encounter Plan of Treatment Date Type Specialty Care Team Description 11/10/2019 Nurse Visit Obstetrics & Gynecology Nurse, [facility] 02/11/2020 Office Visit Obstetrics & Gynecology Radha Cartwright PA-C [address] [place] [address] [phone] Health Maintenance Due Date Last Done Comments HPV VACCINES (1 - Female 08/19/2006 2-dose series) Depression Screening 2007 CHLAMYDIA SCREENING 12/07/2018 12/07/2017, 07/23/2017 INFLUENZA VACCINE (#1) 2019 PAP SMEAR 07/30/2020 07/30/2017 DTaP,Tdap,and Td Vaccines (2 11/16/2027 11/15/2017 - Td) PNEUMOCOCCAL 0-64 YEARS Aged Out No longe r eligible based COMBINED SERIES on patient's age to complete this to [facility] documented as of this encounter Procedures Procedure Name Priority Date/Time Associated Diagnosis Comme nts ASSIGNMENT OF BENEFITS Routine 11/10/2019 2:34 PM CDT documented in this encounter Results Not on filedocumented in this encounter Insurance Payer Benefit Plan / Subscriber ID Effective Phone Address T e Group [facility] xxxxxxxxx 2017-Prese [address] Medic aid HEALTH CHOICE - HEALTH [place] nt [id number] 1 MANAGED MEDICAID [place], [place] MEDICAID [phone] documented as of this encounter
--- OUTSIDE RECORDS SUMMARY | 2019-11-17 02:33 | XMS REPORT | Summary of Care ---
:1995 Author Organization [facility] Address [address] [place] [id number] Care Team Providers Name Role Phone Marika Bentley Primary Care Provider Reason for Visit Reason Comments DEPO PROVERA Encounter Details Date Type Department Care Team Description 11/10/2019 Nurse Visit [facility] Agrawal, Zeinab norwood MD [address] [place] [address] [address] [place] [address] Surveillance for [facility]- [place] Nurse, [facility] Depo-Provera [address] [place] [address] contracept ion ([address], [address] Dx) [place] [address] Allergies No Known Allergiesdocumented as of this encounter (statuses as of 11/10/2019) Medications Medication Sig Dispensed Refills Start Date End Date Status medroxyPROGESTERone 150 150 mg by 0 Active mg/mL injection Intramuscular route every 3 (three) months. Hospital, Clinic, or Other Ordered Dose Route Frequency Start Date End Date Status Facility Administered Medication medroxyPROGESTERone 150 mg IM ONCE 11/10/2019 0 Ended (DEPO-PROVERA) injection 150 mg documented [...] in contact with No / Unsure 11/10/2019 2:54 PM CDT someone who was confirmed or suspected to have Coronavirus / COVID-19? documented as of this encounter Last Filed Vital Signs Vital Sign Reading Time Taken Comments Blood Pressure 114/68 11/10/2019 2:54 PM CDT Pulse 89 11/10/2019 2:54 PM CDT Temperature 36.8 C (98.3 F) 11/10/2019 2:54 PM CDT Respiratory Rate 16 11/10/2019 2:54 PM CDT Oxygen Saturation - - Inhaled Oxygen Concentration - - Weight 53.3 kg (117 lb 6.4 oz) 11/10/2019 2:54 PM CDT Height 149.9 cm (4' 11") 11/10/2019 2:54 PM CDT Body Mass Index 23.71 11/10/2019 2:54 PM CDT documented in this encounter Patient Instructions Patient InstructionsMartha Aleman MA - 11/10/2019 3:00 PM CDT Patient Education Medroxyprogesterone injection [Contraceptive] Brand Names: Depo-Provera, Depo-subQ Provera 104 What is this medicine? MEDROXYPROGESTERONE (me DROX ee proe LISA te pratik) contraceptive injections prevent . They provide effective control for 3 months. Depo-subQ Provera 104 is also used for treating pain related to endometriosis. How should I use this medicine? Depo-Provera Contraceptive injection is given into a muscle. Depo-subQ Provera 104 injection is given under the skin. These injections are given by a health hearing care professional. You must not be before getting an injection. The injection is usually given during the first 5 days after the start of a menstrual period or 6 weeks after delivery of a baby. Talk to your monogram and letter paster regarding the use of this medicine in children. Special care may be needed. These injections have been used in female children who have started having menstrual periods. What side effects may I notice from receiving this medicine? Side effects that you should report to your doctor or health hearing care professional as soon as possible: allergic reactions like skin rash, itching or hives, swelling of the face, lips, or tongue breast tenderness or discharge breathing problems changes in vision depression feeling faint or lightheaded, falls fever pain in the abdomen, chest, groin, or leg problems with balance, talking, walking unusually weak or tired yellowing of the eyes or skin Side effects that usually do not require medical attention (report to your doctor or health hearing care professional if they continue or are bothersome): acne fluid retention and swelling headache irregular periods, spotting, or absent periods temporary pain, itching, or skin reaction at site where injected weight gain What may interact with this medicine? Do not take this medicine with any of the following medications: bosentan This medicine may also interact with the following medications: aminoglutethimide antibiotics or medicines for infections, especially rifampin, rifabutin, rifapentine, and griseofulvin aprepitant barbiturate medicines such as phenobarbital or primidone bexarotene carbamazepine medicines for seizures like ethotoin, felbamate, oxcarbazepine, phenytoin, topiramate modafinil Rocheport's wort What if I miss a dose? Try not to miss a dose. You must get an injection once every 3 months to maintain control. If you cannot keep an appointment, call and reschedule it. If you wait longer than 13 weeks between Depo-Provera contraceptive injections or longer than 14 weeks between Depo-subQ Provera 104 injections, you could get . Use another method for control if you miss your appointment. You may also need a test before receiving another injection. Where should I keep my medicine? This does not apply. The injection will be given to you by a health hearing care professional. What should I tell my health care provider before I take this medicine? They need to know if you have any of these conditions: frequently drink alcohol asthma blood vessel disease or a history of a blood clot in the lungs or legs bone disease such as osteoporosis breast cancer diabetes eating disorder (anorexia nervosa or bulimia) high blood pressure HIV infection or AIDS kidney disease liver disease mental depression migraine seizures (convulsions) stroke tobacco smoker vaginal bleeding an unusual or allergic reaction to medroxyprogesterone, other hormones, medicines, foods, dyes, or preservatives or trying to get breast-feeding What should I watch for while using this medicine? This drug does not protect you against HIV infection (AIDS) or other sexually transmitted diseases. Use of this product may cause you to lose calcium from your bones. Loss of calcium may cause weak bones (osteoporosis). Only use this product for more than 2 years if other forms of control are not right for you. The longer you use this product for control the more likely you will be at risk for weak bones. Ask your health hearing care professional how you can keep strong bones. You may have a change in bleeding pattern or irregular periods. Many females stop having periods while taking this drug. If you have received your injections on time, your chance of being is very low. If you think you may be , see your health hearing care professional as soon as possible. Tell your health hearing care professional if you want to get within the next year. The effect of this medicine may last a long time after you get your last injection. NOTE:This sheet is a summary. It may not cover all possible information. If you have questions aboutthis medicine, talk to your doctor, pharmacist, or health care provider. Copyright 2018 Elsevier documented in this encounter Progress Notes Martha Aleman MA - 11/10/2019 3:00 PM CDT24 year old female has been identified by and name. Verbal consent has been obtained by patientto have an injection of Depo Provera, as ordered by the provider. Date of last Depo Provera injection: 08/03/19 Last Pap Smear: WWE due 01/2020, last intercourse was 2 months ago per patient, UPT done today in clinic and is negative. Encounter Diagnosis: Z30.42 The site was cleaned with an alcohol swab and given intramuscularly (IM) in the right deltoid. A band aid dressing was then applied to the injection site. The patient tolerated the procedure well , no rash, swelling or reaction noted. Martha Aleman MA 11/10/2019 2:52 PM documented in this encounter Plan of Treatment Date Type Specialty Care Team Description 02/11/2020 Office Visit Obstetrics & Gynecology Radha Cartwright PA-C [address] [place] [address] [phone] Health Maintenance Due Date Last Done Comments HPV VACCINES (1 - Female 08/19/2006 2-dose series) Depression Screening 2007 CHLAMYDIA SCREENING 12/07/2018 12/07/2017, 07/23/2017 INFLUENZA VACCINE (#1) 2019 PAP SMEAR 07/30/2020 07/30/2017 DTaP,Tdap,and Td Vaccines (2 11/16/2027 11/15/2017 - Td) PNEUMOCOCCAL 0-64 YEARS Aged Out No longe r eligible based COMBINED SERIES on patient's age to complete [facility] to [facility] documented as of this encounter Procedures Procedure Name Priority Date/Time Associated Diagnosis Comme nts POCT Routine 11/10/2019 2:53 Surveillance for Resul ts for this TEST PM CDT Depo-Provera procedure are i n contraception the results section. documented in this encounter Results POCT TEST (11/10/2019 2:53 PM CDT) Pathologist Sig nature POCT PREG Negative On board controls acceptable Yes with C Line POCT PREG LOT # POCT PREG TEST DATE Specimen Urine - URINE, CLEAN CATCH documented in this encounter Visit Diagnoses Diagnosis Surveillance for Depo-Provera contracept ion - Primary Surveillance of other previously prescri bed contraceptive method documented in this encounter Administered Medications Medication Order MAR Action Action Date Dose Rate Site medroxyPROGESTERone Given 11/10/2019 2:52 150 mg Right (DEPO-PROVERA) injection 150 PM CDT Deltoid-IM mg 150 mg, Intramuscular, ONCE, 1 dose, 11/10/19 at 1600, Routine documented in this encounter Insurance Payer Benefit Plan / Subscriber ID Effective Phone Address T e Group Dates [facility] xxxxxxxxx 2017-Prese [address] Medic aid HEALTH CHOICE - HEALTH CHOICE nt [id number] 1 MANAGED MEDICAID [place], [place] MEDICAID [phone] documented as of this encounter
[2019-11-17] MEDS ORDERED: MAGNE/ALUM HYDROXD 30 ML UCUP ONE (03:29)
[2019-11-17] MEDS ORDERED: FAMOTIDINE 20 MG/2 ML VIAL IV ONE (03:30)
[2019-11-17] MEDS ORDERED: ONDANSETRON 4 MG/2 ML VIAL ONE (03:30)
[2019-11-17] MEDS ORDERED: NA CHLORIDE 0.9% 1,000 ML ONE (03:30)
[2019-11-17] MEDS ORDERED: LIDOCAINE VISCOUS 2% SOLN 15 ML UDC ONE (03:30)
[2019-11-17 03:35] LABS: Urine Specific Gravity >1.030 (1.005-1.030)
[2019-11-17 03:36] LABS: Urine Blood NEGATIVE (NEG); Urine Glucose NEGATIVE (NEG); Urine Protein NEGATIVE (NEG)
[2019-11-17 03:36] LABS: Absolute Lymphocytes (CBC) 3.1 K/uL (0.7-4.9); Basophils % 0.4 % (0-1.3); Hematocrit 40.2 % (36.0-45.0); Lymphocytes % 30.4 % (15.3-44.8); MPV 7.1 fL (7.6-11.3); RBC Red Blood Cell Count 4.77 M/uL (3.86-4.86)
[2019-11-17 03:49] LABS: ALT/SGPT 42 U/L (12-78); Alkaline Phosphatase 91 U/L (45-117); BUN Blood Urea Nitrogen 20 mg/dL (7-18); Bicarbonate 23 mmol/L (21-32); Bilirubin Direct < 0.1 mg/dL (0-0.2); Bilirubin Total 0.2 mg/dL (0.2-1.0); Glucose Level 97 mg/dL (74-106); Lipase 108 U/L (73-393); Protein, Total 7.7 g/dL (6.4-8.2); Sodium Level 139 mmol/L (136-145)
[2019-11-17 03:50] LABS: AST/SGOT 20 U/L (15-37); Potassium 4.1 mmol/L (3.5-5.1)
--- NOTE | 2019-11-17 04:51 | ER ---
Nurse's Notes [facility] Barber Name: Milka Ayon Age: 24 yrs Sex: Female : 1995 Arrival Date: 11/17/2019 Time: 02:30 Bed 16 Private MD: Diagnosis: Upper abdominal pain, unspecified Presentation: 11/16 02:32 Chief complaint: EMS states: they were toned out for report of pt with dizziness, bb nausea, vomiting and diarrhea which started last night around 2200. Coronavirus screen: Patient denies a cough. Proceed with normal triage. Ebola Screen: No symptoms or risks identified at this time. Initial Sepsis Screen: Does the patient meet any 2 criteria? No. Patient's initial sepsis screen is negative. Does the patient have a suspected source of infection? No. Patient's initial sepsis screen is negative. Risk Assessment: Do you want to hurt yourself or someone else? Patient reports no desire to harm self or others. Onset of symptoms was November 16, 2019. 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 - Social history:: Smoking status: unknown Patient/guardian denies using alcohol, street drugs, The patient lives alone, with family. - Family history:: not pertinent. Screenin:50 Abuse screen: Denies threats or abuse. Nutritional screening: No deficits noted. Fall mt2 Risk None identified. 02:50 Tuberculosis screening: No symptoms or risk factors identified. mt2 Assessment: 02:50 Neuro: No deficits noted. Cardiovascular: No deficits noted. Respiratory: No deficits mt2 noted. GI: Abdomen is flat, Bowel sounds present X 4 quads. Abdomen is tender to palpation in epigastric area Reports diarrhea, epigastric pain, nausea, vomiting. : No deficits noted. EENT: No deficits noted. Derm: No deficits noted. Musculoskeletal: No deficits noted. 03:30 Reassessment: Patient and/or family updated on plan of care and expected duration. Pain mt2 level reassessed. General: Appears uncomfortable, Behavior is cooperative. Pain: Complains of pain in abdomen Pain currently is 8 out of 10 on a pain scale. 04:31 Reassessment: Patient and/or family updated on plan of care and expected duration. Pain mt2 level reassessed. Patient denies pain at this time. Patient states feeling better. Patient states symptoms have improved. General: Appears in no apparent distress. comfortable, Behavior is cooperative. 05:01 Reassessment: Patient and/or family updated on plan of care and expected duration. Pain mt2 level reassessed. Patient denies pain at this time. General: Appears comfortable, Behavior is cooperative. Pain: Denies pain. Vital Signs: 02:32 BP 125 / 86; Pulse 83; Resp 14 S; Temp 98.1(O); Pulse Ox 96% on R/A; Weight 53.07 kg bb (R); Height 4 ft. 10 in. (147.32 cm) (R); Pain 5/10; 03:34 BP 123 / 77; Pulse 70; Resp 16; Pulse Ox 97% ; Pain 8/10; mt2 04:31 BP 127 / 69; Pulse 69; Resp 16; Temp 97.9(O); Pulse Ox 99% on R/A; Pain 0/10; mt2 05:01 BP 127 / 62; Pulse 83; Resp 16; Pulse Ox 99% on R/A; Pain 0/10; mt2 02:32 Body Mass Index 24.45 (53.07 kg, 147.32 cm) ED Course: 02:30 Patient arrived in ED. cl3 02:32 Jhon Davis MD is Attending Physician. ma2 02:34 Triage completed. bb 02:36 Arm band placed on Patient placed in an exam room, on a stretcher, on pulse oximetry. bb 03:00 Patient has correct armband on for positive identification. Bed in low position. Call ar2 light in reach. Side rails up X 1. 03:00 Initial lab(s) drawn, by me, sent to lab. Inserted saline lock: 20 gauge in right mt2 antecubital area, using aseptic technique. Blood collected. 03:11 Tonja Trinh, RAMIRO is Primary Nurse. mt2 05:01 No provider procedures requiring assistance completed. IV discontinued, intact, mt2 bleeding controlled, No redness/swelling at site. Pressure dressing applied. Administered Medications: 03:29 Drug: Zofran (Ondansetron) 4 mg Route: IVP; Site: right antecubital; mt2 04:00 Follow up: Response: No adverse reaction; Nausea is decreased mt2 03:29 Drug: Pepcid 20 mg Route: IVP; Site: right antecubital; mt2 04:00 Follow up: Response: No adverse reaction; Pain is decreased mt2 03:30 Drug: NS 0.9% 1000 ml Route: IV; Rate: 1 bolus; Site: right antecubital; mt2 04:30 Follow up: Response: No adverse reaction; IV Status: Completed infusion; IV Intake: mt2 1000ml 03:30 Drug: GI Cocktail without - (Maalox Suspension 30 ml, Lidocaine Liquid 2 % 15 mt2 ml) Route: PO; 04:00 Follow up: Response: No adverse reaction; Pain is decreased mt2 Intake: 04:30 IV: 1000ml; Total: 1000ml. mt2 Outcome: 04:50 Discharge ordered by . ma2 05:01 Discharged to home ambulatory. mt2 05:01 Condition: good 05:01 Discharge instructions given to patient, Instructed on discharge instructions, follow up and referral plans. medication usage, Demonstrated understanding of instructions, follow-up care, medications, Prescriptions given X 2. 05:11 Patient left the ED. mt2 Signatures: Nita Merino, RN RN Jhon Fan MD MD ma2 Leo Antonio 3 Tonja Trinh RN RN mt2
--- NOTE | 2019-11-17 04:51 | EDPHYS ---
Physician Documentation [facility] Barber Name: Milka Ayon Age: 24 yrs Sex: Female : 1995 Arrival Date: 11/17/2019 Time: 02:30 Bed 16 Private MD: ED Physician Jhon Davis HPI: 11/16 02:57 This 24 yrs old Female presents to ER via EMS with complaints of ma2 Nausea/Vomiting, Dizziness. 02:57 The patient presents to the emergency department with nausea, vomiting, diarrhea. ma2 Onset: The symptoms/episode began/occurred gradually, 2 day(s) ago. Associated signs and symptoms: Pertinent negatives: belching, dysuria, flatulence, hematuria. Severity of symptoms: At their worst the symptoms were moderate in the emergency department the symptoms are unchanged. The patient has not experienced similar symptoms in the past. 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 - Social history:: Smoking status: unknown Patient/guardian denies using alcohol, street drugs, The patient lives alone, with family. - Family history:: not pertinent. ROS: 02:57 Constitutional: Negative for fever, chills, and weight loss. ma2 02:57 All other systems are negative. Exam: 02:57 Constitutional: This is a well developed, well nourished patient who is awake, alert, ma2 and in no acute distress. Chest/axilla: Normal chest wall appearance and motion. Nontender with no deformity. No lesions are appreciated. Cardiovascular: Regular rate and rhythm with a normal S1 and S2. No gallops, murmurs, or rubs. Normal PMI, no JVD. No pulse deficits. Respiratory: Lungs have equal breath sounds bilaterally, clear to auscultation and percussion. No rales, rhonchi or wheezes noted. No increased work of breathing, no retractions or nasal flaring. Abdomen/GI: Soft, non-tender, with normal bowel sounds. No distension or tympany. No guarding or rebound. No evidence of tenderness throughout. Skin: Warm, dry with normal turgor. Normal color with no rashes, no lesions, and no evidence of cellulitis. MS/ Extremity: Pulses equal, no cyanosis. Neurovascular intact. Full, normal range of motion. Neuro: Awake and alert, GCS 15, oriented to person, place, time, and situation. Cranial nerves II-XII grossly intact. Motor strength 5/5 in all extremities. Sensory grossly intact. Cerebellar exam normal. Normal gait. Vital Signs: 02:32 BP 125 / 86; Pulse 83; Resp 14 S; Temp 98.1(O); Pulse Ox 96% on R/A; Weight 53.07 kg bb (R); Height 4 ft. 10 in. (147.32 cm) (R); Pain 5/10; 03:34 BP 123 / 77; Pulse 70; Resp 16; Pulse Ox 97% ; Pain 8/10; mt2 04:31 BP 127 / 69; Pulse 69; Resp 16; Temp 97.9(O); Pulse Ox 99% on R/A; Pain 0/10; mt2 05:01 BP 127 / 62; Pulse 83; Resp 16; Pulse Ox 99% on R/A; Pain 0/10; mt2 02:32 Body Mass Index 24.45 (53.07 kg, 147.32 cm) MDM: 02:32 Patient medically screened. [facility] 02:57 Differential diagnosis: gastritis, pancreatitis, viral gastroenteritis, gastroenteritis.[facility] 04:50 Data reviewed: vital signs, nurses notes. Counseling: I had a detailed discussion with [facility] the patient and/or guardian regarding: the historical points, exam findings, and any diagnostic results supporting the discharge/admit diagnosis, the presence of at least one elevated blood pressure reading (>120/80) during this emergency department visit, the need for outpatient follow up. Response to treatment: the patient's symptoms have resolved after treatment. 11/16 02:52 Order name: Basic Metabolic Panel; Complete Time: 04:47 [facility] 11/16 02:52 Order name: CBC with Diff; Complete Time: 03:41 [facility] 11/16 02:52 Order name: Hepatic Function; Complete Time: 04:47 [facility] 11/16 02:52 Order name: Lipase; Complete Time: 04:47 [facility] 11/16 03:18 Order name: Urine Dipstick--Ancillary (enter results); Complete Time: 03:41 mw2 11/16 02:52 Order name: IV Saline Lock; Complete Time: 03:30 ma2 11/16 02:52 Order name: Labs collected and sent; Complete Time: 03:30 ma2 11/16 02:52 Order name: Urine Dipstick-Ancillary (obtain specimen); Complete Time: 03:30 ma2 Administered Medications: 03:29 Drug: Zofran (Ondansetron) 4 mg Route: IVP; Site: right antecubital; mt2 04:00 Follow up: Response: No adverse reaction; Nausea is decreased mt2 03:29 Drug: Pepcid 20 mg Route: IVP; Site: right antecubital; mt2 04:00 Follow up: Response: No adverse reaction; Pain is decreased mt2 03:30 Drug: NS 0.9% 1000 ml Route: IV; Rate: 1 bolus; Site: right antecubital; mt2 04:30 Follow up: Response: No adverse reaction; IV Status: Completed infusion; IV Intake: mt2 1000ml 03:30 Drug: GI Cocktail without - (Maalox Suspension 30 ml, Lidocaine Liquid 2 % 15 mt2 ml) Route: PO; 04:00 Follow up: Response: No adverse reaction; Pain is decreased mt2 Disposition: 11/17/19 04:50 Discharged to Home. Impression: Upper abdominal pain, unspecified. - Condition is Stable. - Discharge Instructions: Abdominal Pain, Adult. - Prescriptions for Zofran 4 mg Oral Tablet - take 1 tablet by ORAL route every 12 hours As needed; 20 tablet. Pepcid 20 mg Oral Tablet - take 1 tablet by ORAL route once daily for 10 days; 10 tablet. - Medication Reconciliation Form, Thank You Letter, Antibiotic Education, Prescription Opioid Use form. - Follow up: Private Physician; When: Tomorrow; Reason: If symptoms return, Continuance of care. Signatures: Dispatcher [employer] EDNita Andino RN RN bb Jhon Davis MD MD ma2 Tonja Trinh RN RN mt2 Corrections: (The following items were deleted from the chart) 05:11 04:50 11/17/2019 04:50 Discharged to Home. Impression: Upper abdominal pain, mt2 unspecified. Condition is Stable. Prescriptions for Zofran 4 mg Oral Tablet - take 1 tablet by ORAL route every 12 hours As needed; 20 tablet, Pepcid 20 mg Oral Tablet - take 1 tablet by ORAL route once daily for 10 days; 10 tablet. and Forms are Medication Reconciliation Form, Thank You Letter, Antibiotic Education, Prescription Opioid Use. Follow up: Private Physician; When: Tomorrow; Reason: If symptoms return, Continuance of care. ma2
[2019-11-17 05:29] VITALS: TEMP 97.9; O2SAT 99
[2019-11-17 05:30] VITALS: BP 127/62
== END 2019-11-17 05:11 | disposition home or self-care (01) ==
LOC: ER 02:29
DX: R10.10 Upper abdominal pain, unspecified (principal)
CPT/HCPCS: 85025; 80048; 36415; 80076; 81003; 83690; J7030; J2405; 96361; 96374; 96375; 99284

== ENCOUNTER 2019-12-12 13:55 | Emergency (ER) | payer OTHER ==
--- OUTSIDE RECORDS SUMMARY | 2019-12-12 13:58 | XMS REPORT | Continuity of Care Document ---
:1995 Author Organization [facility] t Address [address] [place] [address] Care Team Providers Name Role Phone Nurse, [facility] Attending Clinician Unavailable Doctor Unassigned, Name [...] Department ID 2019-11-10 2019-11-10 Nurse Nurse, [facility] [id number] 14:34:47 14:51:13 Visit Pierre Villanueva [id number] [facility] [id number] [facility] [phone] [address] 2019-11-10 2019-11-10 Orders Doctor SAVANNAH [id number] 00:00:00 00:00:00 Only Unassigned, JOSEPH [id number] [place] [facility] [phone] [id number] 2019-10-05 2019-10-05 Telephone HERIBERTO Cartwright [id number] 00:00:00 00:00:00 Radha Villanueva [id number] [place] [id number] [facility] [phone] [address] 2019-08-03 2019-08-03 [employer] Gabbie ALELSY [id number] 08:19:26 16:18:00 ne Visit Radha Kay [id number] Dev[place] [id number] [facility] [phone] [facility] [address] Results This patient has no known results.
--- NOTE | 2019-12-12 15:24 | EDPHYS ---
Physician Documentation [facility] [place] Name: Milka Ayon Age: 24 yrs Sex: Female : 1995 Arrival Date: 12/12/2019 Time: 13:57 Bed 24 Private MD: REAGAN Physician Geovani Rosado HPI: 12/11 15:30 This 24 yrs old Female presents to ER via Ambulatory with complaints of jmm Insect Bite. 15:30 The patient's rash thought to be caused by an unknown cause. Onset: The jmm symptoms/episode began/occurred acutely, 2 week(s) ago. Associated signs and symptoms: Pertinent positives: itching, Pertinent negatives: fever, swelling of lips, swelling of throat, swelling of tongue, vomiting. Patient states she noticed area of redness on her abdomen 2 weeks ago. Patient states now it is itching and warm to the touch. . 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 - Social history:: Smoking status: Patient denies any tobacco usage or history of. ROS: 15:30 Constitutional: Negative for fever, chills, and weight loss, Cardiovascular: Negative jmm for chest pain, palpitations, and edema, Respiratory: Negative for shortness of breath, cough, wheezing, and pleuritic chest pain. 15:30 Skin: Positive for rash. 15:30 All other systems are negative. Exam: 15:30 Constitutional: This is a well developed, well nourished patient who is awake, alert, jmm and in no acute distress. Head/Face: atraumatic. Eyes: EOMI, no conjunctival erythema appreciated ENT: Moist Mucus Membranes Neck: Trachea midline, Supple Chest/axilla: Normal chest wall appearance and motion. Cardiovascular: Regular rate and rhythm. No edema appreciated Respiratory: Normal respirations, no respiratory distress appreciated Abdomen/GI: Non distended, soft Back: Normal ROM 15:30 Skin: erythema noted to the epigastric region, appears consistent with insect bite, non tender to palpation. 15:30 Neuro: Orientation: is normal, Mentation: is normal, Memory: is normal. 15:30 Psych: Behavior/mood is pleasant, cooperative. Vital Signs: 14:21 BP 98 / 61; Pulse 72; Resp 16 S; Temp 98.9(O); Pulse Ox 100% on R/A; Weight 53.07 kg jd3 (R); Height 4 ft. 10 in. (147.32 cm) (R); Pain 5/10; 14:21 Body Mass Index 24.45 (53.07 kg, 147.32 cm) jd3 MDM: 15:13 Patient medically screened. [facility] 15:22 Data reviewed: vital signs, nurses notes. Counseling: I had a detailed discussion with sofy the patient and/or guardian regarding: the historical points, exam findings, and any diagnostic results supporting the discharge/admit diagnosis, the need for outpatient follow up, to return to the emergency department if symptoms worsen or persist or if there are any questions or concerns that arise at home. ED course: Patient is alert and non toxic in appearance in the ED. PE findings consistent with insect bite, possibly infected. Patient is advised to follow up with pcp and otherwise given strict return precautions. Patient understood and agrees with the plan of care. . Administered Medications: No medications were administered Disposition: 12/12 09:03 Co-signature as Attending Physician, Geovani Rosado MD I agree with the assessment and [facility] plan of care. Disposition: 12/12/19 15:24 Discharged to Home. Impression: Insect bite (nonvenomous) of abdominal wall. - Condition is Stable. - Discharge Instructions: Insect Bite. - Prescriptions for Bactroban 2 % Topical Ointment - Apply to affected area 1 application by TOPICAL route every 12 hours; 30 gram. Hydroxyzine HCl 25 mg Oral Tablet - take 1 tablet by ORAL route every 6 hours As needed; 12 tablet. - Medication Reconciliation Form, Thank You Letter, Antibiotic Education, Prescription Opioid Use form. - Follow up: Private Physician; When: 2 - 3 days; Reason: Recheck today's complaints, Continuance of care, Re-evaluation by your physician. Signatures: Geovani Rosado MD MD [facility] Richar Mendoza PA PA jmm Calderon, Audri RN RN aa5 Aram Batista RN RN jd3 Corrections: (The following items were deleted from the chart) 12/11 14:21 14:21 Immunization history: Adult Immunizations char pardo 15:37 15:24 12/12/2019 15:24 Discharged to Home. Impression: Insect bite (nonvenomous) of aa5 abdominal wall. Condition is Stable. Forms are Medication Reconciliation Form, Thank You Letter, Antibiotic Education, Prescription Opioid Use. Follow up: Private Physician; When: 2 - 3 days; Reason: Recheck today's complaints, Continuance of care, Re-evaluation by your physician. sofy
--- NOTE | 2019-12-12 15:24 | ER ---
Nurse's Notes [facility] [place] Name: Milka Ayon Age: 24 yrs Sex: Female : 1995 Arrival Date: 12/12/2019 Time: 13:57 Bed 24 Private MD: Diagnosis: Insect bite (nonvenomous) of abdominal wall Presentation: 12/11 14:18 Chief complaint: Patient states: "I think I have a spider bite. I got it 2 weeks ago, jd3 but it has been itching and hurting so I wanted to get it checked out.". Coronavirus screen: At this time, the client does not indicate any symptoms associated with coronavirus-19. Ebola Screen: Patient negative for fever greater than or equal to 101.5 degrees Fahrenheit, and additional compatible Ebola Virus Disease symptoms. Initial Sepsis Screen: Does the patient meet any 2 criteria? No. Patient's initial sepsis screen is negative. Does the patient have a suspected source of infection? No. Patient's initial sepsis screen is negative. Risk Assessment: Do you want to hurt yourself or someone else? Patient reports no desire to harm self or others. Onset of symptoms was November 28, 2019. 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 - Social history:: Smoking status: Patient denies any tobacco usage or history of. Screenin:10 Abuse screen: Denies threats or abuse. Nutritional screening: No deficits noted. aa5 Tuberculosis screening: No symptoms or risk factors identified. Fall Risk None identified. Assessment: 15:10 General: Appears comfortable, Behavior is calm, cooperative. Pain: Denies pain. Neuro: aa5 Level of Consciousness is awake, alert, obeys commands, Oriented to person, place, time, situation. Cardiovascular: Heart tones S1 S2 present Rhythm is regular. Respiratory: Airway is patent Respiratory effort is even, unlabored, Respiratory pattern is regular, symmetrical. GI: No signs and/or symptoms were reported involving the gastrointestinal system. : No signs and/or symptoms were reported regarding the genitourinary system. EENT: No signs and/or symptoms were reported regarding the EENT system. Derm: Skin is pink, warm \\T\\ dry. dime-sized red raised area noted to upper abdomen, no drainage noted. Musculoskeletal: Range of motion: intact in all extremities. 15:35 Reassessment: Patient is alert, oriented x 3, equal unlabored respirations, skin aa5 warm/dry/pink. Vital Signs: 14:21 BP 98 / 61; Pulse 72; Resp 16 S; Temp 98.9(O); Pulse Ox 100% on R/A; Weight 53.07 kg jd3 (R); Height 4 ft. 10 in. (147.32 cm) (R); Pain 5/10; 14:21 Body Mass Index 24.45 (53.07 kg, 147.32 cm) jd3 ED Course: 13:57 Patient arrived in ED. as 14:20 Triage completed. jd3 14:22 Arm band placed on. jd3 15:09 Mae Craig, RN is Primary Nurse. aa5 15:10 Patient has correct armband on for positive identification. Bed in low position. Call aa5 light in reach. Side rails up X 1. 15:11 Richar Mendoza PA is PHCP. sofy 15:11 Geovani Rosado MD is Attending Physician. [facility] 15:35 No provider procedures requiring assistance completed. Patient did not have IV access aa5 during this emergency room visit. Administered Medications: No medications were administered Outcome: 15:24 Discharge ordered by . [facility] 15:35 Discharged to home ambulatory. aa5 15:35 Condition: good 15:35 Discharge instructions given to patient, Instructed on discharge instructions, follow up and referral plans. medication usage, Demonstrated understanding of instructions, follow-up care, medications, Prescriptions given X 2. 15:37 Patient left the ED. aa5 Signatures: Richar Mendoza PA PA jmm Martinez, Amelia as Calderon, Audri, RN RN aa5 Aram Batista RN RN jd3 Corrections: (The following items were deleted from the chart) 14:21 14:21 Immunization history: Adult Immunizations jd3 jd3 15:45 15:10 Derm: Skin is pink, warm \\T\\ dry. aa5 aa5
== END 2019-12-12 15:37 | disposition home or self-care (01) ==
LOC: ER 13:55
DX: S30.861A Insect bite (nonvenomous) of abdominal wall, initial encounter (principal)
CPT/HCPCS: 99282

== ENCOUNTER 2020-03-29 09:25 | Emergency (ER) | payer OTHER ==
--- NOTE | 2020-03-29 11:19 | ER ---
Nurse's Notes [facility] Name: Milka Ayon Age: 24 yrs Sex: Female : 1995 Arrival Date: 03/29/2020 Time: 09:27 Bed 18 Private MD: Francois Bentley E Diagnosis: Abrasion of left hand Presentation: 03/29 09:34 Chief complaint: Patient states: FALL FROM STANDING LAST PM, CLEARED BY EMS ON SCENE. bp NOW C/O LEFT 3RD FINGER PAIN AND BILATERAL KNEE ABRASIONS. Coronavirus screen: At this time, the client does not indicate any symptoms associated with coronavirus-19. Ebola Screen: No symptoms or risks identified at this time. Initial Sepsis Screen: Does the patient meet any 2 criteria? No. Patient's initial sepsis screen is negative. Does the patient have a suspected source of infection? No. Patient's initial sepsis screen is negative. Risk Assessment: Do you want to hurt yourself or someone else? Patient reports no desire to harm self or others. Onset of symptoms is unknown. 09:34 Method Of Arrival: Ambulatory bp 09:34 Acuity: JULIETH 4 bp Triage Assessment: 09:36 General: Appears in no apparent distress. uncomfortable, Behavior is calm, cooperative, bp appropriate for age. Pain: Complains of pain in left ring finger, right knee and left knee. EENT: No deficits noted. Neuro: No deficits noted. Cardiovascular: No deficits noted. Respiratory: No deficits noted. GI: No signs and/or symptoms were reported involving the gastrointestinal system. : No signs and/or symptoms were reported regarding the genitourinary system. Derm: No deficits noted. Musculoskeletal: Swelling present in left ring finger. Injury Description: Abrasion sustained to right knee and left knee. Historical: - Allergies: 09:36 No Known Allergies; bp - Home Meds: 09:36 None [Active]; bp - PMHx: 09:36 Diabetes - NIDDM; bp - PSHx: 09:36 ; CLEFT PALETTE REPAIR; bp - Immunization history:: Adult Immunizations up to date. - Social history:: Smoking status: Patient denies any tobacco usage or history of. Screenin:37 Abuse screen: Denies threats or abuse. Denies injuries from another. Nutritional bp screening: No deficits noted. Tuberculosis screening: No symptoms or risk factors identified. Fall Risk None identified. Assessment: 09:37 General: SEE TRIAGE NOTE. bp 10:44 Reassessment: Patient appears in no apparent distress at this time. No changes from bp previously documented assessment. Patient and/or family updated on plan of care and expected duration. Pain level reassessed. Patient is alert, oriented x 3, equal unlabored respirations, skin warm/dry/pink. 11:39 Reassessment: PT OPTING TO NOT WAIT FOR XRAY. PT D/C HOME AMBULATORY, DX WITH ABRASION. bp Vital Signs: 09:34 BP 102 / 54; Pulse 91; Resp 16; Temp 97.3; Pulse Ox 99% ; Weight 54.43 kg; Height 4 ft. bp 11 in. (149.86 cm); 10:44 BP 98 / 61; Pulse 78; Resp 16; Pulse Ox 100% ; bp 11:39 BP 101 / 66; Pulse 74; Resp 17; Pulse Ox 100% ; bp 09:34 Body Mass Index 24.24 (54.43 kg, 149.86 cm) bp ED Course: 09:27 Patient arrived in ED. ag5 09:28 Francois Bentley MD is Private Physician. ag5 09:29 Sukhdev Engel, RAMIRO is Primary Nurse. bp 09:35 Jhon Davis MD is Attending Physician. ma2 09:35 Triage completed. bp 09:36 Arm band placed on. bp 09:37 Patient has correct armband on for positive identification. Bed in low position. Call bp light in reach. Side rails up X2. 11:39 No provider procedures requiring assistance completed. Patient did not have IV access bp during this emergency room visit. Administered Medications: No medications were administered Outcome: 11:18 Discharge ordered by . ma2 11:39 Discharged to home ambulatory. bp 11:39 Condition: stable 11:39 Discharge instructions given to patient, Instructed on discharge instructions, follow up and referral plans. Demonstrated understanding of instructions, follow-up care. 11:41 Patient left the ED. bp Signatures: Sukhdev Engel, RAMIRO RN bp Jhno Davis MD MD ma2 Jann Dennis ag5
--- NOTE | 2020-03-29 11:19 | EDPHYS ---
Physician Documentation [facility] [place] Name: Milka Ayon Age: 24 yrs Sex: Female : 1995 Arrival Date: 03/29/2020 Time: 09:27 Bed 18 Private MD: Francois Bentley E ED Physician Jhon Davis HPI: 03/29 11:06 This 24 yrs old Female presents to ER via Ambulatory with complaints of Fall ma2 Injury, Knee Pain, Finger Pain. 11:06 Details of fall: The patient fell from an upright position. Onset: The symptoms/episode ma2 began/occurred suddenly, 1 day(s) ago. Severity of symptoms: At their worst the symptoms were moderate, in the emergency department the symptoms are unchanged. The patient has not experienced similar symptoms in the past. Historical: - Allergies: 09:36 No Known Allergies; bp - Home Meds: 09:36 None [Active]; bp - PMHx: 09:36 Diabetes - NIDDM; bp - PSHx: 09:36 ; CLEFT PALETTE REPAIR; bp - Immunization history:: Adult Immunizations up to date. - Social history:: Smoking status: Patient denies any tobacco usage or history of. ROS: 11:06 Constitutional: Negative for fever, chills, and weight loss. ma2 11:06 All other systems are negative. Exam: 11:06 Constitutional: This is a well developed, well nourished patient who is awake, alert, ma2 and in no acute distress. Head/Face: Normocephalic, atraumatic. Eyes: Pupils equal round and reactive to light, extra-ocular motions intact. Lids and lashes normal. Conjunctiva and sclera are non-icteric and not injected. Cornea within normal limits. Periorbital areas with no swelling, redness, or edema. ENT: Nares patent. No nasal discharge, no septal abnormalities noted. Tympanic membranes are normal and external auditory canals are clear. Oropharynx with no redness, swelling, or masses, exudates, or evidence of obstruction, uvula midline. Mucous membranes moist. Neck: Trachea midline, no thyromegaly or masses palpated, and no cervical lymphadenopathy. Supple, full range of motion without nuchal rigidity, or vertebral point tenderness. No Meningismus. Chest/axilla: Normal chest wall appearance and motion. Nontender with no deformity. No lesions are appreciated. Cardiovascular: Regular rate and rhythm with a normal S1 and S2. No gallops, murmurs, or rubs. Normal PMI, no JVD. No pulse deficits. Respiratory: Lungs have equal breath sounds bilaterally, clear to auscultation and percussion. No rales, rhonchi or wheezes noted. No increased work of breathing, no retractions or nasal flaring. Abdomen/GI: Soft, non-tender, with normal bowel sounds. No distension or tympany. No guarding or rebound. No evidence of tenderness throughout. Back: No spinal tenderness. No costovertebral tenderness. Full range of motion. Skin: Warm, dry with normal turgor. Normal color with no rashes, no lesions, and no evidence of cellulitis. MS/ Extremity: left finger and right knee contusions, Pulses equal, no cyanosis. Neurovascular intact. Full, normal range of motion. Neuro: Awake and alert, GCS 15, oriented to person, place, time, and situation. Cranial nerves II-XII grossly intact. Motor strength 5/5 in all extremities. Sensory grossly intact. Cerebellar exam normal. Normal gait. Vital Signs: 09:34 BP 102 / 54; Pulse 91; Resp 16; Temp 97.3; Pulse Ox 99% ; Weight 54.43 kg; Height 4 ft. bp 11 in. (149.86 cm); 10:44 BP 98 / 61; Pulse 78; Resp 16; Pulse Ox 100% ; bp 11:39 BP 101 / 66; Pulse 74; Resp 17; Pulse Ox 100% ; bp 09:34 Body Mass Index 24.24 (54.43 kg, 149.86 cm) bp MDM: 09:35 Patient medically screened. ma2 11:06 Differential diagnosis: contusion, fracture, sprain, strain. ma2 11:17 Data reviewed: vital signs, nurses notes. Counseling: I had a detailed discussion with ma2 the patient and/or guardian regarding: the historical points, exam findings, and any diagnostic results supporting the discharge/admit diagnosis, the presence of at least one elevated blood pressure reading (>120/80) during this emergency department visit. ED course: patient want to leave with tthe xr, she is able to walk on her left knee, will see pcp or return if left hand not improving. Administered Medications: No medications were administered Disposition: 03/29/20 11:18 Discharged to Home. Impression: Abrasion of left hand. - Condition is Stable. - Discharge Instructions: Abrasion, [id number]. - Medication Reconciliation Form, Thank You Letter, Antibiotic Education, Prescription Opioid Use form. - Follow up: Private Physician; When: Tomorrow; Reason: Recheck today's complaints, Continuance of care. Signatures: Dispatcher [employer] Sukhdev Pichardo RN RN bp Alzahri, Mohammad, MD MD ma2 Corrections: (The following items were deleted from the chart) 11:41 11:18 03/29/2020 11:18 Discharged to Home. Impression: Abrasion of left hand. Condition bp is Stable. Forms are Medication Reconciliation Form, Thank You Letter, Antibiotic Education, Prescription Opioid Use. Follow up: Private Physician; When: Tomorrow; Reason: Recheck today's complaints, Continuance of care. ma2
--- OUTSIDE RECORDS SUMMARY | 2020-03-29 16:43 | XMS REPORT | Summary of Care ---
:1995 Author Organization [facility] - Health Address [address] [place] [address] Care Team Providers Name Role Phone Marika Bentley Primary Care Provider Encounter Details Date Type Department Care Team Description 02/11/2020 Orders Only [facility] Doctor Unassigned, No [address] [facility] [place] [address] [address] [place] [address] Allergies No Known Allergiesdocumented as of this encounter (statuses as of 02/24/2020) Medications Medication Sig Dispensed Refills Start Date End Date Status medroxyPROGESTERone 150 150 mg by 0 Active mg/mL injection Intramuscular route every 3 (three) months. documented as of this encounter (statuses as of 02/24/2020) Active Problems Problem Noted Date Depo-Provera contraceptive status 02/11/2018 documented as of this encounter (statuses as of 02/24/2020) Resolved Problems Problem Noted Date Resolved Date [...] as of this encounter (statuses as of 02/24/2020) Immunizations Name Administration Dates Next Due Influenza Virus Vaccine Quad .5 mL IM 6+ MO 02/11/2020 02/10/2021 MMR 01/15/2018 TDAP 11/15/2017 documented as of this encounter Social History Tobacco Use Types Packs/Day Years Used Date Never Smoker Smokeless Tobacco: Never Used Alcohol Use Drinks/Week oz/Week Comments Yes occasionally Sex Assigned at Date Recorded Not on file COVID-19 Exposure Response Date Recorded In the last month, have you been in contact with No / Unsure 02/11/2020 1:00 PM CDT someone who was confirmed or suspected to have Coronavirus / COVID-19? documented as of this encounter Last Filed Vital Signs Not on filedocumented in this encounter Plan of Treatment Date Type Specialty Care Team Description 05/06/2020 Nurse Visit Obstetrics & Gynecology Nurse, [facility] 02/13/2021 Office Visit Obstetrics & Gynecology Radha Cartwright PA-C [address] [place] [address] [phone] Health Maintenance Due Date Last Done Comments HPV VACCINES (1 - 2-dose 08/19/2006 series) Depression Screening 2007 CHLAMYDIA SCREENING 12/07/2018 12/07/2017, 07/23/2017 PAP SMEAR 07/30/2020 07/30/2017 DTaP,Tdap,and Td Vaccines (2 11/16/2027 11/15/2017 - Td) INFLUENZA VACCINE Completed 02/11/2020 PNEUMOCOCCAL 0-64 YEARS Aged Out No longe r eligible based COMBINED SERIES on patient's age to complete this to [facility] documented as of this encounter Procedures Procedure Name Priority Date/Time Associated Diagnosis Comme nts CONSENT FOR Routine 02/11/2020 12:01 AM CDT DEPO-PROVERA documented in this encounter Results Not on filedocumented in this encounter Insurance Payer Benefit Plan / Subscriber ID Effective Phone Address T ype Group Dates [facility] [id number] 2017-Prese [address] Medic aid HEALTH CHOICE - HEALTH [place] nt [id number] 1 MANAGED MEDICAID [place], [place] [id number] documented as of this encounter
--- OUTSIDE RECORDS SUMMARY | 2020-03-29 16:43 | XMS REPORT | Continuity of Care Document ---
:1995 Author Organization [facility] t Address [address] [place] [address] Care Team Providers Name Role Phone Leonie Thornton MD Attending Clinician Problems This patient has no known problems. Allergies, Adverse Reactions, Alerts This patient has no known allergies or adverse reactions. Medications This patient has no known medications. Procedures This patient has no known procedures. Encounters Start End Encounter Admission Attending Care Care Encounter Source Date/Time Date/Time Type Type Clinicians Facility Department ID 2020-02-26 2020-02-26 Office MAHESH Thornton [id number] 14:51:24 16:18:15 Visit Zehra Villanueva [id number] Devika [id number] Ann Marie [phone] [facility] [address] [facility] Results This patient has no known results.
--- OUTSIDE RECORDS SUMMARY | 2020-03-29 16:43 | XMS REPORT | Summary of Care ---
:1995 Author Organization [facility] Address [address] [place] [id number] Care Team Providers Name Role Phone Marika Bentley Primary Care Provider Reason for Visit Reason Comments Assessment Encounter Details Date Type Department Care Team Description 02/25/2020 Telephone [facility] Women's Ofe Cartwright PA-C Assessment Healthcare- [address] [address] [address] [place] [address] [place] [address] [phone] Allergies No Known Allergiesdocumented as of this encounter (statuses as of 02/25/2020) Medications Medication Sig Dispensed Refills Start Date End Date Status medroxyPROGESTERone 150 150 mg by 0 Active mg/mL injection Intramuscular route every 3 (three) months. 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 documented as of this encounter Last Filed Vital Signs Not on filedocumented in this encounter Miscellaneous Notes Telephone Encounter - Emma Monet RN - 02/25/2020 12:28 PM CSTRN returned patient call, name and verified. Patient states that she felt a lump (unable to describe size) on her perineum, states that it is painful when she wipes. Patient denies HSV or HPV history and no new sexual partners. RN advised patient that she would need to be evaluated in the clinic for this issue. Patient states that the next available opening was in March with Radha and she doesn't want to wait that long. RN stated that patient can also have this evaluated by her PCP, patient declines because she does not want him looking at her vaginal area. RN discussed other OIL TESTER options with patient, patient opts to try to get an appointment with either Dr. Thornton or Dr. Milton in an attempt for a sooner appointment. Call transferred to [facility] for scheduling. 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 Want to be seen today if possible. Please call and advise thanks. documented in this encounter Plan of Treatment Date Type Specialty Care Team Description 02/26/2020 Office Visit Obstetrics & Gynecology Hetal Thornton MD [address] [place] [address] Dr[facility] [address] [address] [phone] 05/06/2020 Nurse Visit Obstetrics & Gynecology Nurse, [facility]' s [facility] 02/13/2021 Office Visit Obstetrics & Gynecology Radha Cartwright PA-C [address] [place] [address] [address] [place] [phone] Health Maintenance Due Date Last Done [...] to pic documented as of this encounter Results Not on filedocumented in this encounter Insurance Payer Benefit Plan / Subscriber ID Effective Phone Address T [facility] [id number] 2017-[place] [address] Medic aid HEALTH CHOICE - [place] [id number] 1 MANAGED MEDICAID [place], [place] [id number] documented as of this encounter
--- OUTSIDE RECORDS SUMMARY | 2020-03-29 16:43 | XMS REPORT | Summary of Care ---
:1995 Author Organization [facility] [employer] [facility] Address [address] [place] [id number] Care Team Providers Name Role Phone Marika Bentley Primary Care Provider Reason for Visit Reason Comments Well Woman Exam Encounter Details Date Type Department Care Team Description 02/11/2020 Office Visit [facility] Women's Radha Cartwright, Well woman exam with routine gynecological exam (Primary Dx); [facility] [place] PA-C Screening breast examination; [address] [place] [address] [address] [facility] Surve[employer] soco for Depo-Provera contraception; Drive, [address] Drive Needs flu shot [place], [place] [address] [id number] [place], [place] [phone] Allergies No Known Allergiesdocumented as of this encounter (statuses as of 02/11/2020) Medications Medication Sig Dispensed Refills Start Date End Date Status medroxyPROGESTERone 150 150 mg by 0 Active mg/mL injection Intramuscular route every 3 (three) months. Hospital, Clinic, or Other Ordered Dose Route Frequency Start Date End Date Status Facility Administered Medication medroxyPROGESTERone 150 mg IM ONCE 02/11/2020 0 Ended (DEPO-PROVERA) injection 150 mg documented as of this encounter (statuses as of 02/11/2020) Active Problems Problem Noted Date Depo-Provera contraceptive status 02/11/2018 documented as of this encounter (statuses as of 02/11/2020) Resolved Problems Problem Noted Date Resolved Date [...] as of this encounter (statuses as of 02/11/2020) Immunizations Name Administration Dates Next Due Influenza [...] Sign Reading Time Taken Comments Blood Pressure 106/68 02/11/2020 1:21 PM CDT Pulse 86 02/11/2020 1:21 PM CDT Temperature 36.9 C (98.5 F) 02/11/2020 1:21 PM CDT Respiratory Rate 16 02/11/2020 1:21 PM CDT Oxygen Saturation - - Inhaled Oxygen Concentration - - Weight 55.1 kg (121 lb 6.4 oz) 02/11/2020 1:21 PM CDT Height 149.9 cm (4' 11") 02/11/2020 1:21 PM CDT Body Mass Index 24.52 02/11/2020 1:21 PM CDT documented in this encounter Patient Instructions Patient InstructionsMartha Aleman MA - 02/11/2020 1:00 PM CDT Patient Education Breast Health: Breast Self-Awareness What is breast self-awareness? Breast self-awareness is knowing how your breasts normally look and feel. Your breasts change as yougo through different stages of your life. So its important to learn what is normal for your breasts. Knowing about your breasts helps you spot any changes in them right away. Tell your healthcare provider about any changes. Why is breast self-awareness important? Many experts now say that women should focus on breast self-awareness instead of doing a breast self-examination (BSE). These experts include the [place] [employer] and the [place] [employer]. Some experts even advise not teaching women to do a BSE. Thats because research hasnt shown a clear benefit to doing BSEs. Breast self-awareness is different than a BSE. It isnt about following a certain method and schedule. Its about knowing what's normal for your breasts. That way you can spot even small changes right away. If you see any changes, tell your healthcare provider. Changes to look for Call your healthcare provider if you find any changes in your breasts that worry you. These changes may be: A lump Nipple discharge other than breast milk, especially if it's bloody Swelling A change in size or shape Skin changes, such as redness, thickening, or dimpling of the skin Swollen lymph nodes in the armpit Nipple problems, such as pain or redness If you find a lump Call your provider if you find lumpiness in one breast. Also call if you feel something different inthe tissue or feel a definite lump. Sometimes lumpiness may be due to menstrual changes. But there may be reason for concern. Your provider may want to see you right away if you have: Nipple discharge that is bloody Skin changes on your breast, such as dimpling or puckering Its okay to be upset if you find a lump. Be sure to call your provider right away. Remember that most breast lumps are benign. This means they are not cancer. [employer] last reviewed this educational content on 08/21/201919998847-1363 [employer]. All rights reserved. This information is not intended as a substitute for professional medical care. Always follow your healthcare professional's instructions. Patient Education Prevention Guidelines,Women Ages 18 to 39 Screening tests and vaccines are an important part of managing your health. A screening test is doneto find possible disorders or diseases in people who don't have any symptoms. The goal is to find a disease early so lifestyle changes can be made and you can be watched more closely to reduce the riskof disease, or to detect it early enough to treat it most effectively. Screening tests are not considered diagnostic, but are used to determine if more testing is needed. Health counseling is essential, too. Below are guidelines for these, for women ages 18 to 39. Talk with your healthcare provider tomake sure youre up-to-date on what you need. Screening Who needs it How often Alcohol misuse All women in this age group At routine exams Blood pressure All women in this age group Yearly checkup if your blood pressure is normal Normal blood pressure is less than 120/80 mm Hg If your blood pressure reading is higher than normal, follow the advice of your healthcare provider Breast cancer All women in this age group should talk with their healthcare providers about the needfor clinical breast exams (CBE)1 Clinical breast exam every 3 years1 Cervical cancer Women ages 21 and older Women between ages 21 and 29 should have a Pap test every 3years; women between ages 30 and 65 are advised to have a Pap test plus an HPV test every 5 years Chlamydia Sexually active women ages 24 and younger, and women at increased risk for infection Every 3 years if you're at risk or have symptoms Depression All women in this age group At routine exams Diabetes mellitus, type 2 Adults with no symptoms who are overweight or obese and have 1 or more other risk factors for diabetes At least every 3 years. Also, testing for diabetes during after the 24th week. Gonorrhea Sexually active women at increased risk for infection At routine exams Hepatitis C Anyone at increased risk At routine exams HIV All women At routine exams3 Obesity All women in this age group At routine exams Syphilis Women at increased risk for infection should talk with their healthcare provider At routine exams Tuberculosis Women at increased risk for infection should talk with their healthcare provider Ask your healthcare provider Vision All women in this age group At least 1 complete exam in your 20s, and 2 in your 30s Vaccine Who needs it How often Chickenpox (varicella) All women in this age group who have no record of this infection or vaccine2 doses; the second dose should be given 4 to 8 weeks after the first dose Hepatitis A Women at increased risk for infection should talk with their healthcare provider 2 doses given at least 6 months apart Hepatitis B Women at increased risk for infection should talk with their healthcare provider 3 doses over 6 months; second dose should be given 1 month after the first dose; the third dose should be given at least 2 months after the second dose and at least 4 months after the first dose Haemophilus influenzae Type B (HIB) Women at increased risk for infection should talk with their healthcare provider 1 to 3 doses Human papillomavirus (HPV) All women in this age group up to age 26 3 doses; the second dose should be given 1 to 2 months after the first dose and the third dose given 6 months after the first dose Influenza (flu) All women in this age group Once a year Measles, mumps, rubella (MMR) All women in this age group who have no record of these infections orvaccines 1 or 2 doses Meningococcal Women at increased risk for infection should talk with their healthcare provider 1 ormore doses Pneumococcal conjugate vaccine (PCV13)and pneumococcal polysaccharidevaccine(PPSV23) Women atincreased risk for infection should talk with their healthcare provider PCV13: 1 dose ages 19 to 65(protects against 13 types of pneumococcal bacteria) PPSV23: 1 to2 doses through age 64, or 1 dose at 65 or older (protects against 23 types of pneumococcal bacteria) Tetanus/diphtheria/pertussis (Td/Tdap) booster All women in this age group Td every 10 years, or a one-time dose of Tdap instead of a Td booster after age 18, then Td every 10 years Counseling Who needs it How often BRCA gene mutation testing for breast and ovarian cancer susceptibility Women with increased risk for having gene mutation When your risk is known Breast cancer and chemoprevention Women at high risk for breast cancer When your risk is known Diet and exercise Women who are overweight or obese When diagnosed, and then at routine exams Domestic violence Women at the age in which they are able to have children At routine exams Sexually transmitted infection prevention Women who are sexually active At routine exams Skin cancer Prevention of skin cancer in fair-skinned adults At routine exams Use of tobacco and the health effects it can cause All women in this age group Every visit 1 According to the ACS, women ages 20 to 39 years should have a clinical breast exam (CBE) as part of their routine health exam every 3 years. Breast self-exams are an option for women starting in their 20s.But the U.S. Preventive Services Task Force (USPSTF) does not recommend CBE. 2 Those who are 18 years old and not up-to-date on their childhood vaccines should get all appropriate catch-up vaccines recommended by the CDC. 3 The USPSTF recommends that all people ages 15 to 65 years be screened for HIV and those younger orolder people at increased risk. The CDC recommends that everyone between the ages of 13 and 64 get tested for HIV at least once as part of routine health care. [employer] paula reviewed this educational content on 01/20/201719993230-1576 The [employer]. All rights reserved. This information is not intended as a substitute for professional medical care. Always follow your healthcare professional's instructions. Patient Education The Flu (Influenza) Updated for the flu season The flu (influenza) is a viral infection that affects your respiratory tract. The respiratory tract is made up of your mouth, nose, and lungs, and the passages between them. Unlike a cold, the flu can make you very ill. It may lead to pneumonia, a serious lung infection. The flu can have serious complications and even cause . Because of the COVID-19 pandemic, experts strongly advise getting a flu vaccine during 5552-6892 to protect yourself, your family, and others. Flu viruses and the COVID-19 virus are both likely to spread during flu season. A flu vaccine will help save medical resources to care for people with COVID-19. People at high risk for complications from the flu are also likely to be at high risk for serious problems from COVID-19, so it's important to get a flu vaccine. Viruses that cause influenza spread through the air in droplets when someone who has the flu coughs,sneezes, laughs, or talks. Who is at risk for the flu? Anyone can get the flu. But you are more likely to become infected if you: Have a weak immune system Work in a healthcare setting where you may be exposed to flu germs Live or work with someone who has the flu Havent had the flu vaccine as advised How does the flu spread? The flu is caused byavirus. The virusspreads through the air in droplets when someone who has the flu coughs, sneezes, laughs, or talks. You can become infected when you inhale theseviruses directly. You can also become infected when you touch a surface on which the droplets have landed and then transfer the germs to your eyes, nose, or mouth. Touching used tissues, or sharing utensils, drinking glasses, or a toothbrush from an infected person can expose you to flu viruses, too. What are the symptoms of the flu? Flu symptoms tend to come on quickly and may last a few days to a few weeks. They include: Fever usually higher than 100.4 F ( 38C )and chills Sore throat and headache Dry cough Runny nose Tiredness and weakness Muscle aches Who is at risk for flu complications? For some people, the flu can be very serious. The risk for complications is greater for: Children younger thanage 5 Adultsages 65and older People with a chronic illness such as diabetes or heart, kidney, or lung disease People with a weak immune system such as those with HIV, AIDS, or cancer,or those who have had a transplant or are taking immune suppressing medicines People who live in a jail or long-term care facility How is the flu treated? The flu usually gets better after 7 days or so. In some cases, yourhealthcare providermay prescribe an antiviral medicine. This may help you get well sooner. It also may reduce the risk for and severity of complications. For the medicine to help, you need to take it as soon as possible (ideally within 48 hours)after your symptoms start. If you develop pneumonia or other serious illness, you may need to stay in the hospital. Easing flu symptoms Drink lots of fluids such as water, juice, and warm soup. A good rule is to drink enough so that you urinate your normal amount. Get plenty of rest. Ask yourhealthcare providerwhat to takefor fever and pain. Don't give aspirin to children under 18 years of age. It can cause the serious illness Griffin syndrome. Call yourprovider if your fever is 100.4 F ( 38C ) or higher, or you become dizzy, lightheaded, or short of breath. Takingsteps to protect others Wash your hands often, especially after coughing or sneezing. Or clean your hands with an alcohol-based handcleaner containing at least 60% alcohol. Cough or sneeze into a tissue. Then throw the tissue away and wash your hands. If you dont have a tissue, cough and sneeze into your elbow. Stay home untilat least 24 hours after you no longer have a fever or chills. Be sure the fever isnt being hidden by fever-reducing medicine. Dont share food, utensils, drinking glasses, or a toothbrush with others. How can the flu be prevented? One of the best ways to prevent the flu is to get a flu vaccine each year. The CDC and [place] [employer] recommend that all people 6 months of age and older get a flu vaccine every year. This includes women. Healthcare providers advise getting the flu vaccine each year as soonas it's available in your area. Flu virus strains change from year to year, so the vaccine changes yearly to help prevent flu viruses predicted to cause illness during the upcoming flu season. For the 6671-9224 influenza season, the vaccine is available in different forms. It'smost often given as a shot into the muscle. A nasalspray is available for healthy, non- people between ages 2 and 49 years. A needle-free form called a jet injector delivers the vaccine through the skin into the muscle through a high-pressure stream. This form may be an option for some people ages 18 to 64. Yourhealthcare providercan tell you which vaccine is right for you. Wash your hands often. Frequent handwashing is a proven way to help prevent the spread of infection. Carry an alcohol-based hand gel containing at least 60% alcohol. Use it when you can't use soap and water. Then wash your hands as soon as you can. Try not to touch your eyes, nose, or mouth. At home and work, clean phones, computer keyboards, and toys often with disinfectant wipes. If possible, don't have close contact with others who have the flu or symptoms of the flu. Handwashing tips Handwashing is one of the best ways to prevent many common infections. If you are caring for or visiting someone with the flu, wash your hands each time you enter and leave the room. Follow these steps: Use clean, running water and plenty of soap. Rub your hands together well. Clean the whole hand, including under your nails, between your fingers, and up the wrists. Wash for at least 20seconds. Rinse, letting the water run down your fingers, not up your wrists. Dry your hands well. Use a paper towel to turn off the faucet and open the door. Using alcohol-based hand photographer's model Alcohol-based handcleaners are also a good choice. Use them when you can't use soap and water. Follow these steps: Apply enough of the cleanser on your hands to cover all surfaces. Rub your hands together briskly, cleaning the backs of your hands, the palms, between your fingers, and up the wrists. Rub until the gel is gone and your hands are completely dry. Preventing the flu in healthcare settings The flu is a special concern for people in hospitals and long-term care facilities. To help prevent the spread of flu, many hospitals and nursing homes take these steps: Healthcare providers wash their hands or use an alcohol-based hand barrel loader and cleaner before and after treating each patient. People with the flu have private rooms and bathrooms or share a room with someone with the same infection. People who are at high risk for the flu but don't have it are encouraged to get theflu and pneumonia vaccines. All healthcare workers are encouraged or required toget flu shots. [employer] last reviewed this educational content on 07/22/201919995602-2329 The [employer]. All rights reserved. This information is not intended as a substitute for professional medical care. Always follow your healthcare professional's instructions. Patient Education Influenza (Adult) Influenza is also called the flu. It's a viral illness that affects the air passages of your lungs. It's different from the common cold. The flu can easily be passed from one to person to another. It may be spread through the air by coughing and sneezing. Or it can be spread by touching the sick person and then touching your own eyes, nose, or mouth. The flu starts 1 to 3 days after you are exposed to the flu virus. It may lastfor 1 to 2 weeks butsometimes people feel tired or fatigued for many weeks afterward. You usually dont need to take antibiotics unless you are at high risk for or have a complication . This might be an ear or sinus infection or pneumonia. Symptoms of the flu may be mild or severe. They can include extreme tiredness (wanting to stay in bed all day), chills, fevers, muscle aches, soreness with eye movement, headache, and a dry, hacking cough. Antiviral medicine for the flu is available by prescription. If you start taking it within 48 hours,it may help reduce how long your symptoms last and how severe they are. Your provider may do a test to find out if you have influenza and which strain you have. Home care Follow these guidelines when caring for yourself at home: Stay away from cigarette smoke, whether yours or other peoples. Acetaminophen or ibuprofen will help ease your fever, muscle aches, and headache. Dont give aspirin to anyone younger than 18 who has the flu. This can cause a serious condition called Griffin syndrome. Nausea, loose stools, and loss of appetite are common with the flu. Eat light meals. Drink 6 to 8glasses of liquids every day. Good choices are water, sport drinks, soft drinks without caffeine, juices, tea, and soup. Extra fluids will also help loosen secretions in your nose and lungs. [id number] cold medicines will not make the flu go away faster. But the medicines may help with coughing, sore throat, and congestion in your nose and sinuses. Dont use a decongestant if you have high blood pressure. Stay home until your fever has been gone for at least 24 hours without using medicine to reduce fever. Follow-up care Follow up with your healthcare provider, or as advised, if you are not getting better over the next week. If you are age 65 or older, talk with your provider about getting a pneumococcal vaccine every 5 years. You should also get this vaccine if you have chronic asthma or COPD. All adults should get a flu vaccine every fall. Ask your provider about this. When to seek medical advice Call your healthcare provider right away if you have the flu and any of these occur: Cough with lots of colored mucus (sputum) or blood in your mucus Chest pain, shortness of breath, wheezing, or trouble breathing Severe headache, or face, neck, or ear pain New rashwith fever Fever of 100.4F (38C)or higher, or asdirected by your healthcare provider Confusion, behavior change, or seizure Severe weakness or dizziness You get a newfever or cough after getting better for a few days Also call your provider if you have flu symptoms and have a weakened immune system or are taking medicines that can weaken your immune system. These include steroids and certain anti-inflammatory medicines. [employer] last reviewed this educational content on 01/20/201919997559-4793 The [employer]. [address] [place] [address], [place] [address]. All rights reserved. This information is not intended as a substitute for professional medical care. Always follow your healthcare professional's instructions. documented in this encounter Progress Notes Martha Aleman MA - 02/11/2020 1:00 PM CDT24 year old female has been identified by and name. Written consent has been obtained by patient to have an injection of Depo Provera, as ordered by the provider. Date of last Depo Provera injection: 11/10/2019 Last Pap Smear: 07/30/2017 Encounter Diagnosis: Z30.42 The site was cleaned with an alcohol swab and given intramuscularly (IM) in the left deltoid. A band aid dressing was then applied to the injection site. The patient tolerated the procedure well , norash, swelling or reaction noted. Martha Aleman MA 02/11/2020 1:24 PM Radha Cartwright PA-C - 02/11/2020 1:00 PM CDT Chief complaint: Chief Complaint Patient presents with Well Woman Exam HPI July Ting Chappell is a 24 year old female presenting for well woman exam. She is particularly concerned about WWE The patient has a Body mass index is 24.52 kg/m.. She is working on eating healthier and exercising more. The patient is not concerned about her menstrual cycles. Her cycles are not present due to depo. The patient is sexually active. She currently has 1 sexual partner(s). She is offered sexually transmitted disease testing and declines. She has had 1 sexual partners in the past year. She engages in vaginal and oral sex. She prefers men. She is currently using depo for contraception. The patient denies any urinary incontinence. She denies any fecal incontinence. Her last pap smear was in 2017 and was normal. Her next pap smear is due 2020. She engages in breast self awareness. She denies any breast changes. She denies any family history of breast, ovarian, uterine or colon cancer. She has not had a flu shot this year. The patient feels safe at home. She denies any history of drug use. She does not smoke. She drinks socially. Her mood is good. Histories OB History Para Term AB Living 2 1 1 1 1 SAB TAB Ectopic Multiple Live Births 1 # Outcome Date GA Lbr Ignacio/2nd Weight Sex Delivery Anes PTL Lv 2 SAB 01/20/17 1 Term Past Medical History: Diagnosis Date Abnormal glucose affecting 07/26/2017 Anemia of mother in , antepartum 12/20/2017 Cleft lip Family History Problem Relation Age of Onset Hypertension Mother Diabetes Maternal Grandmother Heart Maternal Grandmother Stroke Maternal Grandmother x's 3 Cancer Maternal Grandfather Arthritis NoFHx Asthma NoFHx defects NoFHx Breast Cancer NoFHx Colon Cancer NoFHx Ovarian Cancer NoFHx Uterine Cancer NoFHx Depression NoFHx Genetic NoFHx High cholesterol NoFHx Mental retardation NoFHx Neurological NoFHx Osteoporosis NoFHx Psychiatry NoFHx Other - see comments NoFHx Family Status Relation Name Status Mo Alive Fa Alive MGMo (Not Specified) NoFHx (Not Specified) Past Surgical History: Procedure Laterality Date SECTION N/A 01/14/2018 Surgeon: Mariza Villatoro MD; Location: [facility] Delivery OR Location CLEFT LIP REPAIR two surgeries Social History Socioeconomic History Marital status: Single Spouse name: Not on file Number of children: 0 Years of education: 12 Highest education level: Not on file 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 Social Needs Financial resource strain: Not on file Food insecurity Worry: Not on file Inability: Not on file Transportation needs Medical: Not on file Non-medical: Not on file Tobacco Use Smoking status: Never Smoker Smokeless tobacco: Never Used Substance and Sexual Activity Alcohol use: Yes Comment: occasionally Drug use: No Sexual activity: Yes Partners: Male control/protection: None Lifestyle Physical activity Days per week: Not on file Minutes per session: Not on file Stress: Not on file Relationships Social connections Talks on phone: Not on file Gets together: Not on file Attends temple service: Not on file Active member of club or organization: Not on file Attends meetings of clubs or organizations: Not on file Relationship status: Not on file Intimate partner violence Fear of current or ex partner: Not on file Emotionally abused: Not on file Physically abused: Not on file Forced sexual activity: Not on file Other Topics Concern Not on file Social History Narrative Denies domestic or physical violence within the home Lives with her sister and family friend Has two dogs / No cats in home Social History Substance and Sexual Activity Sexual Activity Yes Partners: Male control/protection: None Labs none Radiology None Allergies Milka has No Known Allergies. Medications Milka has a current medication list which includes the following prescription(s): medroxyprogesterone. Review of Systems Constitutional: Negative for appetite change, fatigue and fever. HENT: Negative for rhinorrhea and sore throat. Eyes: Negative for pain and itching. Respiratory: Negative for cough, chest tightness and shortness of breath. Breasts: Negative for discharge, mass and pain. Cardiovascular: Negative for chest pain, palpitations and leg swelling. Gastrointestinal: Negative for abdominal pain, constipation, diarrhea and nausea. Genitourinary: Negative for bladder incontinence, dysuria, vaginal discharge, difficulty urinating, vaginal pain and pelvic pain. Musculoskeletal: Negative for gait problem and myalgias. Skin: Negative for rash. Neurological: Negative for dizziness and headaches. Psychiatric/Behavioral: Negative for suicidal ideas. The patient is not nervous/anxious. Endocrine: Negative for hair loss. BP 106/68 (BP Location: Left arm, Patient Position: Sitting, BP CUFF SIZE: Adult Medium) | Pulse 86 | Temp 36.9 C (98.5 F) (Oral) | Resp 16 | Ht 4' 11" (1.499 m) | Wt 121 lb 6.4 oz (55.1 kg) | BMI 24.52 kg/m Pregravid BMI: Could not be calculated Physical Exam Vitals reviewed. Constitutional: She is oriented to person, place, and time. She appears well- developed and well-nourished. Neck: No mass. No thyromegaly palpated. Cardiovascular: Regular rate and rhythm. Pulmonary/Chest: Normal inspiratory effort. Abdominal: Abdomen is soft. No tenderness present. No hernia palpated or inspected. Neuro/Psychiatric: She has a normal mood and affect. She is oriented to person, place, and time. Skin: Skin normal. Assessment/Plan Well woman exam with routine gynecological exam (primary encounter diagnosis) FOLLOW-UP in 1 yr WWE DEPO for control For Depo-provera, it is given every 3 months. May cause heavy and irregular bleeding initially. Side effects include but not limited to headache, weight gain, mood lability, breast tenderness, and abnormal uterine bleeding. Discussed need for calcium and weightbearing exercise and stressed importance of continued use of condoms for STD protection. It may take up to a year after discontinuation of medication to regain ovulation. Discussed risks and benefits of medication and questions answered. Flu vaccine given today. Screening breast examination Comment: no complaints, self awareness. Return to clinic in 1 yr WWE Discussed treatment options. Reviewed patient instructions and provided printed copy. This visit did not involve counseling and coordination that comprised more than 50% of the visit time. Radha Cartwright PA-C 02/11/2020 1:19 PM documented in this encounter Plan of Treatment Date Type Specialty Care Team Description 05/06/2020 Nurse Visit Obstetrics & Gynecology Nurse, [facility] Women' s Health 02/13/2021 Office Visit Obstetrics & Gynecology Radha Cartwright PA-C [address] [place] [address] [phone] Health Maintenance Due Date Last Done Comments HPV VACCINES (1 - 2-dose 08/19/2006 series) Depression Screening 2007 CHLAMYDIA SCREENING 12/07/2018 12/07/2017, 07/23/2017 INFLUENZA VACCINE (#1) 2019 PAP SMEAR 07/30/2020 07/30/2017 DTaP,Tdap,and Td Vaccines (2 11/16/2027 11/15/2017 - Td) PNEUMOCOCCAL 0-64 YEARS Aged Out No longe r eligible based COMBINED SERIES on patient's age to complete [facility] to [facility] documented as of this encounter Procedures Procedure Name Priority Date/Time Associated Diagnosis Comme nts FLU VACC ([id number]), Routine 02/11/2020 1:39 PM Well woman e xam with 6+ MONTHS, IM, QUAD CDT routine gynecological exam Needs flu shot documented in this encounter Results Not on filedocumented in this encounter Visit Diagnoses Diagnosis Well woman exam with routine gynecologic al exam - Primary Routine gynecological examination Screening breast examination Other screening breast examination Surveillance for Depo-Provera contracept ion Surveillance of other previously prescri bed contraceptive method Needs flu shot Need for prophylactic vaccination and in oculation against influenza documented in this encounter Administered Medications Medication Order MAR Action Action Date Dose Rate Site medroxyPROGESTERone Given 02/11/2020 1:23 150 mg Left Deltoid-IM (DEPO-PROVERA) injection 150 PM CDT mg 150 mg, Intramuscular, ONCE, 1 dose, Saritha 02/11/20 at 1430, Routine documented in this encounter Insurance Payer Benefit Plan / Subscriber ID Effective Phone Address T e Group Dates [facility] [id number] [address] Medic aid HEALTH CHOICE - HE[place] nt [id number] 1 MANAGED MEDICAID [place], [place] MEDICAID [phone] documented as of this encounter
--- OUTSIDE RECORDS SUMMARY | 2020-03-29 16:43 | XMS REPORT | Summary of Care ---
:1995 Author Organization [facility] Address [address] [place] [address] Care Team Providers Name Role Phone Marika Bentley Primary Care Provider Reason for Visit Reason Comments Well Woman Exam Encounter Details Date Type Department Care Team Description 02/11/2020 Office Visit [facility] Women's Radha Cartwright, Well woman exam with routine gynecological exam (Primary Dx); [facility] PA-C Screening breast examination; [address] [place] [address] 146 [facility] Surveil soco for Depo-Provera contraception; Drive, [address] Drive Needs flu shot [place], [place] [address] [address] [place], [place] [phone] Allergies No Known Allergiesdocumented as of [...] breast self-examination (BSE). These experts include the [place] [employer] and the [place] [employer] Obstetricians [employer] Gynecologists. Some experts [...] benign. This means they are not cancer. [employer] last reviewed this educational content on 08/21/201919996090-6914 The [employer]. All rights reserved. This information is not [...] once as part of routine health care. [employer] paula reviewed this educational content on 01/20/201719994502-2710 The [employer]. All rights reserved. This information is not [...] strongly advise getting a flu vaccine during 9656-2178 to protect yourself, your family, and others. [...] suppressing medicines People who live in a fci or long-term care facility How is the [...] flu vaccine each year. The CDC and [place] Academy of Pediatrics recommend that all people [...] during the upcoming flu season. For the 0392-1388 influenza season, the vaccine is available in [...] and open the door. Using alcohol-based hand electronic gluer Alcohol-based handcleaners are also a good choice. [...] their hands or use an alcohol-based hand home restoration service cleaner before and after treating each patient. People with the flu have private rooms and bathrooms or share a room with someone with the same infection. People who are at high risk for the flu but don't have it are encouraged to get theflu and pneumonia vaccines. All healthcare workers are encouraged or required toget flu shots. [employer] last reviewed this educational content on 07/22/201919995184-7501 The [employer]. All rights reserved. This information is not [...] loosen secretions in your nose and lungs. Jbrz-jnb-wjltmab cold medicines will not make the flu [...] These include steroids and certain anti-inflammatory medicines. [employer] last reviewed this educational content on 01/20/201919998664-4341 [facility], [place]. [address] [place] [address], [place] [address]. All rights reserved. This information is not [...] N/A 01/14/2018 Surgeon: Mariza Villatoro MD; Location: [facility] Labor and Delivery OR Location [...] file Gets together: Not on file Attends jain service: Not on file Active member of [...] 05/06/2020 Nurse Visit Obstetrics & Gynecology Nurse, [facility] Women' s Health 02/13/2021 Office Visit Obstetrics & Gynecology Radha Cartwright PA-C [address] [place] [address] [phone] Health Maintenance Due Date Last Done Comments HPV VACCINES (1 - 2-dose 08/19/2006 series) Depression Screening 2007 CHLAMYDIA SCREENING 12/07/2018 12/07/2017, 07/23/2017 INFLUENZA VACCINE (#1) 2019 PAP SMEAR 07/30/2020 07/30/2017 DTaP,Tdap,and Td Vaccines (2 11/16/2027 11/15/2017 - Td) PNEUMOCOCCAL 0-64 YEARS Aged Out No longe r eligible based COMBINED SERIES on patient's age to complete this to [facility] documented as of this encounter Procedures Procedure Name Priority Date/Time Associated Diagnosis Comme nts FLU VACC ([id number]), Routine 02/11/2020 1:39 PM Well woman e [...] Effective Phone Address T e Group Dates [facility] [id number] [address] Medic aid HEALTH CHOICE - HEALTH CHOICE nt [id number] 1 MANAGED MEDICAID [place], [place] MEDICAID [phone] documented as of this encounter
--- OUTSIDE RECORDS SUMMARY | 2020-03-29 16:44 | XMS REPORT | Summary of Care ---
:1995 Author Organization [facility] Address [address] [place] [address] Care Team Providers Name Role Phone Marika Bentley Primary Care Provider Reason for Visit Reason Comments Vaginal Problem Bump Auth/Cert Status Reason Specialty Diagnoses / Procedures Referred By Chaparro lan Referred To Contact Phlebotomy Diagnoses Lesion of female perineum Adc Pob Lab Draw Procedures HIV 1/2 AB DIFFERENTIATION- Professional Office Building [address] [place] [address] , [address] [place] [address] Phone: Fax: Encounter Details Date Type Department Care Team Description 02/26/2020 Office Visit [facility] Women's AdZehra marmolejo MD Lesion of female Healthcare- [address] perinefrancie (Primary Dx) 146 [facility] [address], [address] [place] [phone] Allergies No Known Allergiesdocumented as of this encounter (statuses as of 02/26/2020) Medications Medication Sig Dispensed Refills Start Date End Date Status medroxyPROGESTERone 150 150 mg by 0 Active mg/mL injection Intramuscular route every 3 (three) months. valACYclovir (VALTREX) 1 Take 1 tablet by 20 tablet 0 02/26/20 20 Active gram tabletIndications: mouth 2 (two) Lesion of female times daily. perineum documented as of this encounter (statuses as of 02/26/2020) Active Problems Problem Noted Date Depo-Provera contraceptive status 02/11/2018 documented as of this encounter (statuses as of 02/26/2020) Resolved Problems Problem Noted Date Resolved Date [...] as of this encounter (statuses as of 02/26/2020) Immunizations Name Administration Dates Next Due Influenza [...] with No / Unsure 02/25/2020 12:37 PM WIRE STRAIGHTENER someone who was confirmed or suspected to have Coronavirus / COVID-19? documented as of this encounter Last Filed Vital Signs Vital Sign Reading Time Taken Comments Blood Pressure 107/70 02/26/2020 3:15 PM WIRE STRAIGHTENER Pulse 79 02/26/2020 3:15 PM WIRE STRAIGHTENER Temperature 36.7 C (98.1 F) 02/26/2020 3:15 PM WIRE STRAIGHTENER Respiratory Rate 18 02/26/2020 3:15 PM WIRE STRAIGHTENER Oxygen Saturation - - Inhaled Oxygen Concentration - - Weight 54.4 kg (120 lb) 02/26/2020 3:15 PM WIRE STRAIGHTENER Height 147.3 cm (4' 10") 02/26/2020 3:15 PM WIRE STRAIGHTENER Body Mass Index 25.08 02/26/2020 3:15 PM WIRE STRAIGHTENER documented in this encounter Progress Notes Zehra Thornton MD - 02/26/2020 4:00 PM CST Chief complaint: Chief Complaint Patient presents with Vaginal Problem Bump July Ting Chappell is a 24 year-old lady who presents with concerns of a very painful lesion/bump noticed yesterday. She denies abnormal vaginal discharge. Reports that she was last sexually active in September. Histories OB History Para Term AB Living [...] Name Status Mo Alive Fa Alive MGMo Alive MGFa NoFHx (Not Specified) Past Surgical History: Procedure Laterality Date SECTION N/A 01/14/2018 Surgeon: Mariza Villatoro MD; Location: [facility] Labor and Delivery OR Location CLEFT [...] file Gets together: Not on file Attends roman catholic service: Not on file Active member of [...] Activity Yes Partners: Male control/protection: None Labs No new labs Radiology No new radiology. Allergies Milka has No Known Allergies. Medications Milka has a current medication list which includes the following prescription(s): valacyclovir and medroxyprogesterone. Review of Systems Constitutional: Negative. Respiratory: Negative. Cardiovascular: Negative. Genitourinary: Positive for genital sores (painful bump). Negative for vaginal discharge and vaginalpain. BP 107/70 (BP Location: Left arm, Patient Position: Sitting, BP CUFF SIZE: Adult Medium) | Pulse 79 | Temp 36.7 C (98.1 F) (Oral) | Resp 18 | Ht 4' 10" (1.473 m) | Wt 120 lb (54.4 kg) | BMI 25.08 kg/m Pregravid BMI: Could not be calculated Physical Exam Vitals reviewed. Constitutional: She appears well-developed. She has no deformities. External genitalia: No labial lesion (Tender solitary vesicle on the perineum close to the anal verge- herpetic in appearance. De-roofed whilst collecting a specimen for viral culture). Vagina:Normal vagina. Cervix: Normal cervix. Uterus: Normal uterus Adnexa: Normal left adnexa and normal right adnexa Assessment/Plan Lesion of female perineum (primary encounter diagnosis) Comment: Lesion appears herpetic in appearance. Explained Genital herpes is a common high contagious sexually transmitted infection. Although features of genital herpes include pain, itching and sores in the genital area, it may also be asymptomaticand still be infectious. After the initial infection, the virus lies dormant in the body and can reactivate several times a year anything that drops the immune levels e.g. stress, infection to name a few. Unfortunately there's no cure for genital herpes, but medications can ease symptoms and reduce the risk of infecting others. Condoms also can help prevent transmission of the virus. Suppressive therapy is usually recommended for recurrent outbreaks which is defined as more than 4 episodes/year. Recurrences are generally less painful than the original outbreak, and sores generally heal more quickly. Two types of herpes simplex virus infections can cause genital herpes: HSV-1. This is the type that usually causes cold sores or fever blisters around the mouth, it can also cause genital infection viaoral sex. Recurrences are much less frequent than they are with HSV-2 infection. HSV-2. This is the type that commonly causes genital herpes. The virus spreads through sexual contact and wrym-yx-keuj contact. HSV-2 is very common and highly contagious, whether or not you have an open sore. Because thevirus dies quickly outside of the body, it's nearly impossible to get the infection through contact with toilets, towels or other objects used by an infected person.Discussed diagnosis of gential herpes and mode of transmission. Reviewed HSV1 and HSV2- both can cause genital herpes. Also reviewed primary out break vs recurrent ones. Explained Ist episode is most painful outbreak. HSV2 tends to cause more recurrence lesions. Plan: HSV 1&2, VZV BY PCR, HSV 1&2, VZV BY PCR, ADC OR ELIZABETH ONLY - RPR, HCV ANTIBODY, HEPATITIS B SURFACE ANTIGEN, HIV 1/2 AG-AB WITH REFLEX, HSV 1 AND 2 GLYCOPROTEIN G IGG, valACYclovir (VALTREX) 1 gram tablet, GC & CHLAMYDIA AMPLIFIED ASSAY, TRICHOMONAS AMPLIFIED ASSAY This visit did not involve counseling and coordination that comprised more than 50% of the visit time. Zehra Thornton MD documented in this encounter Plan of Treatment Date Type Specialty Care Team Description 05/06/2020 Nurse Visit Obstetrics & Gynecology Nurse, [facility] Women' s Health 02/13/2021 Office Visit Obstetrics & Gynecology Radha Cartwright PA-C [address] [place] [address] [phone] Name Type Priority Associated Diagnoses Date/Ti me ADC OR ELIZABETH ONLY - RPR LAB Routine Lesion of femal e 02/26/2020 4:46 PM perineum WIRE STRAIGHTENER HCV ANTIBODY LAB Routine Lesion of female 02/26/2020 4:46 PM perineum WIRE STRAIGHTENER HEPATITIS B SURFACE LAB Routine Lesion of female 09/2019 4:46 PM ANTIGEN perineum WIRE STRAIGHTENER HIV 1/2 AG-AB WITH REFLEX LAB Routine Lesion of femal e 02/26/2020 4:46 PM perineum WIRE STRAIGHTENER HSV 1 AND 2 GLYCOPROTEIN G LAB Routine Lesion of fema le 02/26/2020 4:46 PM IGG perineum WIRE STRAIGHTENER Name Type Priority Associated Diagnoses Order S chedule HSV 1&2, VZV BY PCR LAB Routine Lesion of female Expe cted: 02/26/2020, perineum Expires: 2020 ADC OR ELIZABETH ONLY - RPR LAB Routine Lesion of femal e Expected: 02/26/2020, perineum Expires: 2020 HCV ANTIBODY LAB Routine Lesion of female Expected: 1 04/27/2019, perineum Expires: 2020 HEPATITIS B SURFACE LAB Routine Lesion of female Expe cted: 02/26/2020, ANTIGEN perineum Expires: 2020 HIV 1/2 AG-AB WITH REFLEX LAB Routine Lesion of femal e Expected: 02/26/2020, perineum Expires: 2020 HSV 1 AND 2 GLYCOPROTEIN G LAB Routine Lesion of fema le Expected: 02/26/2020, IGG perineum Expires: 2020 GC & CHLAMYDIA AMPLIFIED LAB Routine Lesion of female Ordered: 02/26/2020 ASSAY perineum TRICHOMONAS AMPLIFIED LAB Routine Lesion of female Or dered: 02/26/2020 ASSAY perineum Health Maintenance Due Date Last Done Comments [...] filedocumented in this encounter Visit Diagnoses Diagnosis Lesion of female perineum - Primary Unspecified noninflammatory disorder of vulva and perineum documented in this encounter Insurance Payer Benefit Plan / Subscriber ID Effective Phone Address T ype Group Dates [facility] [id number] [address] Medic aid HEALTH CHOICE - HEALTH [place]ICE nt [id number] 1 MANAGED MEDICAID [place], [place] MED[place]ID [id number] documented as of this encounter
--- OUTSIDE RECORDS SUMMARY | 2020-03-29 16:44 | XMS REPORT | Summary of Care ---
:1995 Author Organization [facility] Address [address] [place] [address] Care Team Providers Name Role Phone Marika Bentley Primary Care Provider Reason for Visit Reason Comments Vaginal Problem Bump Auth/Cert Status Reason Specialty Diagnoses / Procedures Referred By Chaparro lan Referred To Contact Phlebotomy Diagnoses Lesion of female perineum Adc Pob Lab Draw Procedures HIV 1/2 AB DIFFERENTIATION- Professional Office Building [address] [place] [address] , [address] [place] [address] Phone: Fax: Encounter Details Date Type Department Care Team Description 02/26/2020 Office Visit [facility] Women's AdZehra marmolejo MD Lesion of female Healthcare- [address] perinefrancie (Primary Dx) 146 [facility] [address], [address] [place] [phone] Allergies No Known Allergiesdocumented [...] with No / Unsure 02/25/2020 12:37 PM CLOCK MECHANIC someone who was confirmed or suspected to have Coronavirus / COVID-19? documented as of this encounter Last Filed Vital Signs Vital Sign Reading Time Taken Comments Blood Pressure 107/70 02/26/2020 3:15 PM CLOCK MECHANIC Pulse 79 02/26/2020 3:15 PM CLOCK MECHANIC Temperature 36.7 C (98.1 F) 02/26/2020 3:15 PM CLOCK MECHANIC Respiratory Rate 18 02/26/2020 3:15 PM CLOCK MECHANIC Oxygen Saturation - - Inhaled Oxygen Concentration - - Weight 54.4 kg (120 lb) 02/26/2020 3:15 PM CLOCK MECHANIC Height 147.3 cm (4' 10") 02/26/2020 3:15 PM CLOCK MECHANIC Body Mass Index 25.08 02/26/2020 3:15 PM CLOCK MECHANIC documented in this encounter Progress Notes Zehra [...] N/A 01/14/2018 Surgeon: Mariza Villatoro MD; Location: [facility] Labor and Delivery OR Location [...] file Gets together: Not on file Attends sabianist service: Not on file Active member of [...] The virus spreads through sexual contact and yysx-ht-tkji contact. HSV-2 is very common and highly [...] 05/06/2020 Nurse Visit Obstetrics & Gynecology Nurse, [facility] Women' s Health 02/13/2021 Office Visit Obstetrics & Gynecology Radha Cartwright PA-C [address] [place] [address] [phone] Name Type Priority Associated Diagnoses Date/Ti me ADC OR ELIZABETH ONLY - RPR LAB Routine Lesion of femal e 02/26/2020 4:46 PM perineum CLOCK MECHANIC HCV ANTIBODY LAB Routine Lesion of female 02/26/2020 4:46 PM perineum CLOCK MECHANIC HEPATITIS B SURFACE LAB Routine Lesion of female 09/2019 4:46 PM ANTIGEN perineum CLOCK MECHANIC HIV 1/2 AG-AB WITH REFLEX LAB Routine Lesion of femal e 02/26/2020 4:46 PM perineum CLOCK MECHANIC HSV 1 AND 2 GLYCOPROTEIN G LAB Routine Lesion of fema le 02/26/2020 4:46 PM IGG perineum CLOCK MECHANIC Name Type Priority Associated Diagnoses Order S [...] ype Group Dates [facility] [id number] [address] Medic aid HEALTH CHOICE - HEALTH CHOICE nt [id number] 1 MANAGED MEDICAID [place], [place] MED[place]ID [phone] documented as of this encounter
--- OUTSIDE RECORDS SUMMARY | 2020-03-29 16:44 | XMS REPORT | Summary of Care ---
:1995 Author Organization [facility] - Health Address [address] [place] [address] Care Team Providers Name Role Phone Marika Bentley Primary Care Provider Encounter Details Date Type Department Care Team Description 02/26/2020 Orders Only [facility] Doctor Unassigned, No [address] [facility] [place] [address] [address] [place] [address] Allergies No Known Allergiesdocumented as of this [...] with No / Unsure 02/25/2020 12:37 PM CONSUMER MARKETING SPECIALIST someone who was confirmed or suspected to have Coronavirus / COVID-19? documented as of this encounter Last Filed Vital Signs Not on filedocumented in this encounter Plan of Treatment Date Type Specialty Care Team Description 05/06/2020 Nurse Visit Obstetrics & Gynecology Nurse, [facility] 02/13/2021 Office Visit Obstetrics & Gynecology Radha Cartwright PA-C [address] [place] [address] [phone] Health Maintenance Due Date Last Done Comments HPV VACCINES (1 - 2-dose 08/19/2006 series) Depression Screening 2007 CHLAMYDIA SCREENING 12/07/2018 12/07/2017, 07/23/2017 PAP SMEAR 07/30/2020 07/30/2017 DTaP,Tdap,and Td Vaccines (2 11/16/2027 11/15/2017 - Td) INFLUENZA VACCINE Completed 02/11/2020 PNEUMOCOCCAL 0-64 YEARS Aged Out No longe r eligible based COMBINED SERIES on patient's age to complete this to select specialty hospital documented as of this encounter Procedures Procedure Name Priority Date/Time Associated Diagnosis Comme nts ASSIGNMENT OF BENEFITS Routine 02/26/2020 4:34 PM CONSUMER MARKETING SPECIALIST documented in this encounter Results Not on filedocumented in this encounter Insurance Payer Benefit Plan / Subscriber ID Effective Phone Address T e Group [facility] [id number] 2017-[address] Medic aid HEALTH CHOICE - HE[place] nt [id number] 1 MANAGED MEDICAID [place], [place]ID [id number] documented as of this encounter
--- OUTSIDE RECORDS SUMMARY | 2020-03-29 16:44 | XMS REPORT | Summary of Care ---
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 documented as of this encounter Last Filed Vital Signs Not on filedocumented in this encounter Nursing Notes Laurie Bray - 02/26/2020 4:15 PM CST Venipuncture collection performed by clean technique on the right anticubitus. Total of 1 attempts were made. Slight pressure and a bandage/dressing were applied to the site(s). The patient experiencedno complications. The following specimens were processed according to instructions and sent to [facility] laboratories per lab order on [id number]: LT BLUE 3 SST 1 RED LAV PPT DK GREEN (LiHep) DK GREEN (SodH) LIU DK BLUE (K2) DK BLUE (S) ACD Blood Culture NIPT/NTD documented in this encounter Plan of Treatment Date Type Specialty Care Team Description 05/06/2020 Nurse Visit Obstetrics & Gynecology Nurse, [facility] 02/13/2021 Office Visit Obstetrics & Gynecology Radha Cartwright PA-C [address] [place] [address] [phone] Name Type Priority Associated Diagnoses Date/Ti me HCV ANTIBODY LAB Routine Lesion of female 02/26/2020 4:46 PM perineum 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 HEPATITIS B SURFACE LAB Routine Lesion of female 09/2019 4:46 PM ANTIGEN perineum 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 HIV 1/2 AG-AB WITH REFLEX LAB Routine Lesion of femal e 02/26/2020 4:46 PM perineum 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 HSV 1 AND 2 GLYCOPROTEIN G LAB Routine Lesion of fema le 02/26/2020 4:46 PM IGG perineum 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 Medic aid [place] [id number] 1 MANAGED MEDICAID [place], [place] [phone] documented as of this encounter
== END 2020-03-29 11:41 | disposition home or self-care (01) ==
LOC: ER 09:25
DX: S60.512A Abrasion of left hand, initial encounter (principal); M25.562 Pain in left knee; W19.XXXA Unspecified fall, initial encounter; Y93.89 Activity, other specified; Y92.9 Unspecified place or not applicable
CPT/HCPCS: 99281

== ENCOUNTER 2020-04-20 04:26 | Emergency (ER) | payer OTHER ==
--- OUTSIDE RECORDS SUMMARY | 2020-04-20 04:27 | XMS REPORT | Continuity of Care Document ---
:1995 Author Organization [facility] t Address [address] [place] [address] Care Team Providers Name Role Phone Leonie [...] ID 2020-02-26 2020-02-26 Office MAHESH Thornton [id number] 14:51:24 16:18:15 Visit Zehra Villanueva [id number] Devika [id number] Ann Marie [phone] [facility] [address] [facility] Results This patient has no known results.
[2020-04-20 04:53] LABS: Absolute Lymphocytes (CBC) 3.3 K/uL (0.7-4.9); Basophils % 0.6 % (0-1.3); Hematocrit 39.1 % (36.0-45.0); Lymphocytes % 33.8 % (15.3-44.8); RBC Red Blood Cell Count 4.66 M/uL (3.86-4.86)
[2020-04-20 05:15] LABS: ALT/SGPT 42 U/L (12-78); AST/SGOT 20 U/L (15-37); Albumin 3.9 g/dL (3.4-5.0); Alkaline Phosphatase 105 U/L (45-117); BUN Blood Urea Nitrogen 18 mg/dL (7-18); Bicarbonate 25 mmol/L (21-32); Bilirubin Direct < 0.1 mg/dL (0-0.2); Bilirubin Total 0.3 mg/dL (0.2-1.0); Glucose Level 112 mg/dL (74-106); Lipase 91 U/L (73-393); Protein, Total 7.5 g/dL (6.4-8.2); Sodium Level 141 mmol/L (136-145)
[2020-04-20] MEDS ORDERED: ONDANSETRON 4 MG/2 ML VIAL ONE (05:19)
[2020-04-20] MEDS ORDERED: FAMOTIDINE 20 MG/2 ML VIAL IV ONE (05:19)
[2020-04-20] MEDS ORDERED: NA CHLORIDE 0.9% 1,000 ML ONE (05:19)
[2020-04-20 05:49] LABS: Urine Bacteria <20 /HPF (<20); Urine Mucus 2+ /HPF (NONE SEEN); Urine RBC <5 /HPF (NONE SEEN)
[2020-04-20 05:50] LABS: Urine Blood NEGATIVE (NEG); Urine Glucose NEGATIVE (NEG); Urine Protein NEGATIVE (NEG); Urine Specific Gravity >1.030 (1.005-1.030)
--- NOTE | 2020-04-20 06:30 | ER ---
Nurse's Notes [facility] Geovanna Name: Milka Ayon Age: 24 yrs Sex: Female : 1995 Arrival Date: 04/20/2020 Time: 04:26 Bed 4 Private MD: Diagnosis: Vomiting;Abdominal tenderness;Type 2 diabetes mellitus;Urinary tract infection, site not specified Presentation: 04/20 04:29 Chief complaint: EMS states: complaint of nausea and vomiting few hours ago. vital rr5 signs stable. patient denies fever. Coronavirus screen: Client denies travel out of the [place] in the last 14 days. At this time, the client does not indicate any symptoms associated with coronavirus-19. Ebola Screen: Patient negative for fever greater than or equal to 101.5 degrees Fahrenheit, and additional compatible Ebola Virus Disease symptoms Patient denies exposure to infectious person. Patient denies travel to an Ebola-affected area in the 21 days before illness onset. Initial Sepsis Screen: Does the patient meet any 2 criteria? No. Patient's initial sepsis screen is negative. Does the patient have a suspected source of infection? No. Patient's initial sepsis screen is negative. Risk Assessment: Do you want to hurt yourself or someone else? Patient reports no desire to harm self or others. Onset of symptoms was April 20, 2020. Transition of care: [facility]. 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 - Social history:: Smoking status: unknown Patient/guardian denies using alcohol, street drugs. Screenin:35 Abuse screen: Denies threats or abuse. Denies injuries from another. Nutritional rr5 screening: No deficits noted. Tuberculosis screening: No symptoms or risk factors identified. Fall Risk IV access (20 points). Total Almonte Fall Scale indicates No Risk (0-24 pts). Assessment: 04:34 General: Appears in no apparent distress. uncomfortable, Behavior is calm, cooperative, rr5 appropriate for age. Pain: Complains of pain in right upper quadrant and left upper quadrant Pain currently is 4 out of 10 on a pain scale. Quality of pain is described as aching, Pain began suddenly, Is intermittent. Neuro: Level of Consciousness is awake, alert, obeys commands, Oriented to person, place, time, situation. Cardiovascular: Capillary refill < 3 seconds Patient's skin is warm and dry. Respiratory: Airway is patent Respiratory effort is even, unlabored, Respiratory pattern is regular, symmetrical. GI: Abdomen is round non-distended, Reports upper abdominal pain, nausea, vomiting. : No signs and/or symptoms were reported regarding the genitourinary system. EENT: No signs and/or symptoms were reported regarding the EENT system. Derm: Skin is intact, is healthy with good turgor, Skin temperature is warm. Musculoskeletal: Circulation, motion, and sensation intact. Capillary refill < 3 seconds. 06:00 Reassessment: Patient appears in no apparent distress at this time. Patient is alert, rr5 oriented x 3, equal unlabored respirations, skin warm/dry/pink. 07:03 Reassessment: Patient appears in no apparent distress at this time. Patient is alert, rr5 oriented x 3, equal unlabored respirations, skin warm/dry/pink. discharge instruction given and explained without complaints made Patient states feeling better. Patient states symptoms have improved. Vital Signs: 04:29 BP 125 / 100; Pulse 97; Resp 17; Temp 98; Pulse Ox 98% ; Weight 54.43 kg; Height 4 ft. rr5 10 in. (147.32 cm); Pain 4/10; 05:14 BP 105 / 68; Pulse 95; Resp 18; Pulse Ox 100% on R/A; mg2 06:15 BP 110 / 62; Pulse 96; Resp 17; Pulse Ox 98% ; rr5 07:00 BP 102 / 62; Pulse 90; Resp 17; Pulse Ox 99% ; rr5 04:29 Body Mass Index 25.08 (54.43 kg, 147.32 cm) rr5 ED Course: 04:26 Patient arrived in ED. cl3 04:29 Jose Rafael Ohara RN is Primary Nurse. rr5 04:31 No provider procedures requiring assistance completed. Inserted saline lock: 20 gauge mg2 in right antecubital area, using aseptic technique. Blood collected. 04:33 Triage completed. rr5 04:34 Arm band placed on right wrist. rr5 04:35 Patient has correct armband on for positive identification. Bed in low position. Call rr5 light in reach. Pulse ox on. NIBP on. 04:42 Geovani Rosado MD is Attending Physician. [facility] 05:13 COVID swab sent to lab. mg2 Administered Medications: 05:13 Drug: NS 0.9% 1000 ml Route: IV; Rate: 1 bolus; Site: right antecubital; mg2 06:00 Follow up: Response: No adverse reaction; IV Status: Completed infusion; IV Intake: rr5 1000ml 05:13 Drug: Zofran (Ondansetron) 4 mg Route: IVP; Site: right antecubital; mg2 06:15 Follow up: Response: No adverse reaction rr5 05:13 Drug: Pepcid 20 mg Route: IVP; Site: right antecubital; mg2 06:00 Follow up: Response: No adverse reaction rr5 06:50 Drug: Rocephin 1 grams Route: IV; Rate: per protocol; Site: right antecubital; rr5 07:02 Follow up: Response: Medication administered at discharge.; IV Status: Completed rr5 infusion Intake: 06:00 IV: 1000ml; Total: 1000ml. rr5 Outcome: 06:29 Discharge ordered by . [facility] 07:04 Patient left the ED. rr5 Addendum: 04/21/2020 18:17 Addendum: COVID-19 Result: Negative result given to RN to notify pt. Attempted to i w contact pt regarding negative COVID-19 swab results. Left voice mail. 18:23 Addendum: COVID-19 Result: Negative result given to RN to notify pt. Notified pt of i w negative COVID 19 swab results. Pt advised that even with a negative test result they should remain in isolation until symptom free for 3 days without medication. Pt also advised to return to the ED for worsening symptoms. Signatures: Geovani Rosado MD MD cha Williams, Irene, RN RN iw Iker Hernandez RN RN mg2 Jose Rafael Ohara RN RN rr5 Leo Antonio 3
--- NOTE | 2020-04-20 06:31 | EDPHYS ---
Physician Documentation [facility] Barber Name: Milka Ayon Age: 24 yrs Sex: Female : 1995 Arrival Date: 04/20/2020 Time: 04:26 Bed 4 Private MD: ED Physician Geovani Rosado HPI: 04/20 05:00 This 24 yrs old Female presents to ER via EMS with complaints of rusty Nausea/Vomiting. 05:00 The patient presents to the emergency department with nausea, vomiting, abdominal pain, rusty of the epigastric area, right upper quadrant and left upper quadrant. Onset: The symptoms/episode began/occurred just prior to arrival. Possible causes: unknown. The symptoms are aggravated by nothing. The symptoms are alleviated by nothing. Associated signs and symptoms: The patient has no apparent associated signs or symptoms. Severity of symptoms: At their worst the symptoms were. The patient has not experienced similar symptoms in the past. 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 - Social history:: Smoking status: unknown Patient/guardian denies using alcohol, street drugs. ROS: 05:03 Constitutional: Negative for fever, chills, and weight loss, Eyes: Negative for injury, rusty pain, redness, and discharge, ENT: Negative for injury, pain, and discharge, Neck: Negative for injury, pain, and swelling, Cardiovascular: Negative for chest pain, palpitations, and edema, Respiratory: Negative for shortness of breath, cough, wheezing, and pleuritic chest pain, Back: Negative for injury and pain, : Negative for injury, bleeding, discharge, and swelling, MS/Extremity: Negative for injury and deformity, Skin: Negative for injury, rash, and discoloration, Neuro: Negative for headache, weakness, numbness, tingling, and seizure, Psych: Negative for depression, anxiety, suicide ideation, homicidal ideation, and hallucinations, Allergy/Immunology: Negative for hives, rash, and allergies, Endocrine: Negative for neck swelling, polydipsia, polyuria, polyphagia, and marked weight changes, Hematologic/Lymphatic: Negative for swollen nodes, abnormal bleeding, and unusual bruising. 05:03 Abdomen/GI: Positive for abdominal pain, nausea and vomiting, of the epigastric area, right upper quadrant and left upper quadrant. Exam: 05:03 Constitutional: This is a well developed, well nourished patient who is awake, alert, rusty and in no acute distress. Head/Face: Normocephalic, atraumatic. Eyes: Pupils equal round and reactive to light, extra-ocular motions intact. Lids and lashes normal. Conjunctiva and sclera are non-icteric and not injected. Cornea within normal limits. Periorbital areas with no swelling, redness, or edema. ENT: Nares patent. No nasal discharge, no septal abnormalities noted. Tympanic membranes are normal and external auditory canals are clear. Oropharynx with no redness, swelling, or masses, exudates, or evidence of obstruction, uvula midline. Mucous membranes moist. Neck: Trachea midline, no thyromegaly or masses palpated, and no cervical lymphadenopathy. Supple, full range of motion without nuchal rigidity, or vertebral point tenderness. No Meningismus. Chest/axilla: Normal chest wall appearance and motion. Nontender with no deformity. No lesions are appreciated. Cardiovascular: Regular rate and rhythm with a normal S1 and S2. No gallops, murmurs, or rubs. Normal PMI, no JVD. No pulse deficits. Respiratory: Lungs have equal breath sounds bilaterally, clear to auscultation and percussion. No rales, rhonchi or wheezes noted. No increased work of breathing, no retractions or nasal flaring. Back: No spinal tenderness. No costovertebral tenderness. Full range of motion. Skin: Warm, dry with normal turgor. Normal color with no rashes, no lesions, and no evidence of cellulitis. MS/ Extremity: Pulses equal, no cyanosis. Neurovascular intact. Full, normal range of motion. Neuro: Awake and alert, GCS 15, oriented to person, place, time, and situation. Cranial nerves II-XII grossly intact. Motor strength 5/5 in all extremities. Sensory grossly intact. Cerebellar exam normal. Normal gait. 05:03 Abdomen/GI: Inspection: abdomen appears normal, Bowel sounds: normal, Palpation: abdomen is soft and non-tender, Liver: no appreciated palpable abnormalities, Hernia: not appreciated. Vital Signs: 04:29 BP 125 / 100; Pulse 97; Resp 17; Temp 98; Pulse Ox 98% ; Weight 54.43 kg; Height 4 ft. rr5 10 in. (147.32 cm); Pain 4/10; 05:14 BP 105 / 68; Pulse 95; Resp 18; Pulse Ox 100% on R/A; mg2 06:15 BP 110 / 62; Pulse 96; Resp 17; Pulse Ox 98% ; rr5 07:00 BP 102 / 62; Pulse 90; Resp 17; Pulse Ox 99% ; rr5 04:29 Body Mass Index 25.08 (54.43 kg, 147.32 cm) rr5 MDM: 04:44 Patient medically screened. rusty 05:05 Differential diagnosis: Nonspecific abd pain, cholecystitis, pancreatitis. Data rusty reviewed: vital signs, nurses notes, lab test result(s). 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 Test interpretation: by ED physician or midlevel provider:. Counseling: I had a detailed discussion with the patient and/or guardian regarding: the historical points, exam findings, and any diagnostic results supporting the discharge/admit diagnosis, lab results, the need for outpatient follow up, for definitive care, a family practitioner. 04/20 04:31 Order name: Basic Metabolic Panel; Complete Time: 06:28 mg2 04/20 04:31 Order name: CBC with Diff; Complete Time: 06:28 mg2 04/20 04:31 Order name: Hepatic Function; Complete Time: 06:28 mg2 04/20 04:31 Order name: Lipase; Complete Time: 06:28 mg2 04/20 04:41 Order name: Urine Microscopic Only; Complete Time: 06:28 rr5 04/20 04:45 Order name: Urine Dipstick--Ancillary (enter results); Complete Time: 06:28 mw2 04/20 04:31 Order name: IV Saline Lock; Complete Time: 04:31 mg2 04/20 04:45 Order name: Urine --Ancillary (enter results); Complete Time: 06:28 mw2 04/20 04:59 Order name: COVID-19 rusty 04/20 05:51 Order name: Urine Culture EDMS 04/20 04:31 Order name: Labs collected and sent; Complete Time: 04:31 mg2 04/20 04:31 Order name: Urine Dipstick-Ancillary (obtain specimen); Complete Time: 04:41 mg2 04/20 04:31 Order name: Urine Test (obtain specimen); Complete Time: 04:41 mg2 Administered Medications: 05:13 Drug: NS 0.9% 1000 ml Route: IV; Rate: 1 bolus; Site: right antecubital; mg2 06:00 Follow up: Response: No adverse reaction; IV Status: Completed infusion; IV Intake: rr5 1000ml 05:13 Drug: Zofran (Ondansetron) 4 mg Route: IVP; Site: right antecubital; mg2 06:15 Follow up: Response: No adverse reaction rr5 05:13 Drug: Pepcid 20 mg Route: IVP; Site: right antecubital; mg2 06:00 Follow up: Response: No adverse reaction rr5 06:50 Drug: Rocephin 1 grams Route: IV; Rate: per protocol; Site: right antecubital; rr5 07:02 Follow up: Response: Medication administered at discharge.; IV Status: Completed rr5 infusion Disposition: 04/20/20 06:29 Discharged to Home. Impression: Vomiting, Abdominal tenderness, Type 2 diabetes mellitus, Urinary tract infection, site not specified. - Condition is Stable. - Discharge Instructions: Abdominal Pain, Adult, Type 2 Diabetes Mellitus, Diagnosis, Adult, Nausea and Vomiting, Adult, Urinary Tract Infection, Adult, Nausea and Vomiting, Adult, Eecv-[id number], Urinary Tract Infection, Adult, Wcyp-vn-Shbd, Abdominal Pain, Adult, Guxt-tn-Qxyl, Type 2 Diabetes Mellitus, Diagnosis, Adult, Puoc-yt-Jvny. - Prescriptions for Pepcid 20 mg Oral Tablet - take 1 tablet by ORAL route every 12 hours for 10 days; 20 tablet. Zofran 4 mg Oral Tablet - take 1 tablet by ORAL route every 12 hours As needed; 20 tablet. Macrobid 100 mg Oral Capsule - take 1 capsule by ORAL route every 12 hours for 7 days; 14 capsule. - Medication Reconciliation Form, Thank You Letter, Antibiotic Education, Prescription Opioid Use form. - Follow up: Private Physician; When: 2 - 3 days; Reason: Recheck today's complaints, Continuance of care, Re-evaluation by your physician. - Problem is new. - Symptoms have improved. Signatures: Dispatcher [employer] EDGeovani Ritter MD MD cha Gardose, Michele, RN RN Jose Rafael Alvarez RN RN rr5 Corrections: (The following items were deleted from the chart) 07:04 06:29 04/20/2020 06:29 Discharged to Home. Impression: Vomiting; Abdominal tenderness; rr5 Type 2 diabetes mellitus; Urinary tract infection, site not specified. Condition is Stable. Discharge Instructions: Abdominal Pain, Adult, Type 2 Diabetes Mellitus, Diagnosis, Adult, Nausea and Vomiting, Adult, Nausea and Vomiting, Adult, Gnms-[id number], Abdominal Pain, Adult, Poin-gd-Zenu, Type 2 Diabetes Mellitus, Diagnosis, Adult, [id number]-[id number]. Prescriptions for Pepcid 20 mg Oral Tablet - take 1 tablet by ORAL route every 12 hours for 10 days; 20 tablet, Zofran 4 mg Oral Tablet - take 1 tablet by ORAL route every 12 hours As needed; 20 tablet. and Forms are Medication Reconciliation Form, Thank You Letter, Antibiotic Education, Prescription Opioid Use. Follow up: Private Physician; When: 2 - 3 days; Reason: Recheck today's complaints, Continuance of care, Re-evaluation by your physician. Problem is new. Symptoms have improved. rusty
[2020-04-20] MEDS ORDERED: CEFTRIAXONE/SWI 1gm 1 GM/10 ML SYR ONE (07:04)
[2020-04-20 07:08] VITALS: TEMP 98
[2020-04-20 07:15] VITALS: BP 102/62; O2SAT 99
== END 2020-04-20 07:04 | disposition home or self-care (01) ==
LOC: ER 04:26
DX: N39.0 Urinary tract infection, site not specified (principal); Z20.828 Contact with and (suspected) exposure to other viral communicable diseases; R11.2 Nausea with vomiting, unspecified; E11.9 Type 2 diabetes mellitus without complications
CPT/HCPCS: 96361; 87088; 85025; 87086; 80048; 36415; 81025; 80076; 83690; 96375; 96374; 99284; J0696; J7030; J2405; 81003; 81015; U0002